=== PATIENT | male | born 1965 | race Caucasian/White ===

== ENCOUNTER 2016-12-09 21:43 | Inpatient (IN) | payer OTHER ==
[2016-12-09 22:44] LABS: MCH 26.9 pg (25.7-33.7); MCHC 32.3 g/dl (32.0-35.9); MEAN CELL VOLUME 83.4 fl (80-96); MEAN PLT VOLUME 9.8 fl (7.5-11.1); PLATELET COUNT 175 K/MM3 (134-434); RDW 13.9 % (11.9-15.9); WHITE BLOOD COUNT 26.2 K/mm3 (4.0-10.0)
--- NOTE | 2016-12-09 23:04 | PDOC ---
History of Present Illness - General Chief Complaint: Nausea/Vomiting Stated Complaint: VOMITING/FEVER/LIGHTHEADED Time Seen by Provider: 12/09/16 22:02 History Source: Patient, Other (son) Exam Limitations: No Limitations - History of Present Illness Travel History: No Initial Comments: 12/09/16 23:55 51-year-old male with a history of interstitial cystitis presents to the emergency department with his son complaining of fever (tmax 104.0 @1100hrs today/oral temp at home), with nausea/vomiting but denies any abdominal pains, dizziness, lightheadedness, chest pain, shortness of breath, flank pain, urinary symptoms. Patient states he had a cystoscopy today by his urologist. Past History - Past Medical History Allergies/Adverse Reactions: Allergies Allergy/AdvReac Type Severity Reaction Status Date / Time Iodinated Contrast Media - Allergy Verified 12/09/16 22:22 Oral and Home Medications: Ambulatory Orders Pentosan Polysulfate Sodium [Elmiron] 100 mg PO TID 08/27/15 Ranitidine HCl [Zantac 75] 75 mg PO DAILY 08/27/15 Tamsulosin HCl [Flomax -] 0.4 mg PO DAILY 08/27/15 Docusate Sodium [Colace -] 100 mg PO BID 04/30/16 Sennosides [Perdiem] 15 mg PO DAILY 04/30/16 Morphine *Sr* [Ms Contin -] 15 mg PO Q8H 12/09/16 Nitrofurantoin Macrocrystal [Macrodantin -] 100 mg PO QID 12/09/16 Potassium Citrate [Potassium Citrate ER] 10 meq PO BID 12/09/16 Anemia: No GI Disorders: Yes (DIVERTICULITIS) Disorders: Yes (BPH, prostatitis, kidney stones) Other medical history: chronic back pain, bladder disease - Surgical History Abdominal Surgery: Yes (hernia sx) Orthopedic Surgery: Yes (lumbar sx x2) - Psycho/Social/Smoking Cessation Hx Anxiety: No Suicidal Ideation: No Smoking Status: Yes Smoking History: Former smoker Have you smoked in the past 12 months: No Number of Cigarettes Smoked Daily: 20 If you are a former smoker, when did you quit?: 2008 Information on smoking cessation initiated: No Hx Alcohol Use: No Drug/Substance Use Hx: No Substance Use Type: None Hx Substance Use Treatment: No *Physical Exam - Vital Signs Last Vital Signs Temp Pulse Resp BP Pulse Ox 97.4 F L 110 H 23 91/65 97 12/09/16 21:51 12/09/16 21:51 12/09/16 21:51 12/09/16 21:51 12/09/16 21:51 ED Treatment Course - LABORATORY CBC & Chemistry Diagram: 12/09/16 22:30 12/09/16 22:30 - ADDITIONAL ORDERS Additional order review: 12/09/16 22:30 RBC 5.70 H MCV 83.4 MCHC 32.3 RDW 13.9 MPV 9.8 Neutrophils % Y Lymphocytes % Y Progress Note - Progress Note Progress Note: 2308hrs: Called Dr. Aga Hyde [phone]/pt's urologist 2354hrs: Second call: Dr. Hyde/urology spoke to Dr. Hyde/[facility] hospitalist to admit to ICU *DC/Admit/Observation/Transfer Diagnosis at time of Disposition: Sepsis Qualifiers: Sepsis type: sepsis due to unspecified organism Qualified Code(s): A41.9 - Sepsis, unspecified organism - Discharge Dispostion Condition at time of disposition: Guarded Admit: Yes - Referrals Referrals: Ina Elizondo [Primary Care Provider] -
[2016-12-09 23:07] LABS: ALBUMIN 4.1 g/dl (3.4-5.0); BILIRUBIN,TOTAL 1.8 mg/dL (0.2-1.0); COCKROFT - GAULT 76.76; CREATININE 1.3 mg/dL (0.7-1.3); TOT PROT 7.2 g/dl (6.4-8.2)
[2016-12-09] MEDS ORDERED: HYDROmorphone HCL CARPU-JECT 1 MG/1 ML DISP.SYRIN IVPUSH ONE (23:07)
[2016-12-09] MEDS ORDERED: ONDANSETRON 4 MG/2 ML VIAL IVPUSH ONE (23:08)
[2016-12-09] MEDS ORDERED: HYDROmorphone HCL CARPU-JECT 1 MG/1 ML DISP.SYRIN ONE (23:10)
[2016-12-09] MEDS ORDERED: ONDANSETRON 4 MG/2 ML VIAL ONE (23:10)
[2016-12-10] MEDS ORDERED: LEVOFLOXACIN 500 MG IVPB 100 ML IVPB ONE ×3 (00:04→10:00)
[2016-12-10 00:11] LABS: PLATELET ESTIMATE ADEQUATE (NORMAL)
[2016-12-10] MEDS ORDERED: KCL 10 MEQ IVPB 100 ML IVPB SCH (00:15)
[2016-12-10] MEDS ORDERED: PIPERACILLIN/TAZOB 3.375 GM 50 ML IVPB ONE (00:24)
[2016-12-10] MEDS ORDERED: ONDANSETRON 4 MG/2 ML VIAL IVPB PRN (00:27)
[2016-12-10] MEDS ORDERED: METOCLOPRAMIDE HCL INJECTION 10 MG/2 ML VIAL ONE (01:00)
[2016-12-10] MEDS ORDERED: HYDROmorphone HCL CARPU-JECT 1 MG/1 ML DISP.SYRIN ONE (01:02)
[2016-12-10] MEDS ORDERED: PIPERACILLIN/TAZOB 3.375 GM 3.375 GM in DEXTROSE 5%-WATER - 50 ML IVPB ONE (01:03)
[2016-12-10] MEDS: SODIUM CHLORIDE 1,000 ML IV SCH (01:05)
[2016-12-10] MEDS ORDERED: METOCLOPRAMIDE HCL INJECTION 10 MG/2 ML VIAL IVPB ONE (01:07)
[2016-12-10] MEDS ORDERED: HYDROmorphone HCL CARPU-JECT 1 MG/1 ML DISP.SYRIN IVPUSH ONE (01:23)
[2016-12-10] MEDS ORDERED: ACETAMINOPHEN 325 MG TABLET (FP) PO ONE (01:45)
[2016-12-10] MEDS ORDERED: ACETAMINOPHEN INJECTION 100 ML IVPB ONE (01:47)
[2016-12-10] MEDS ORDERED: ACETAMINOPHEN 1000 MG/100 ML VIAL (NON FORMULARY) IVPB ONE (01:51)
[2016-12-10] MEDS ORDERED: HEPARIN NA (PORCINE) 5,000 UNITS/ML 1ML VIAL ONE (02:46)
[2016-12-10 02:50] LABS: URINE APPEARANCE SLCLOUDY; URINE BILIRUBIN NEGATIVE (NEGATIVE); URINE COLOR DKYELLOW; URINE GLUCOSE (UA) NEGATIVE (NEGATIVE); URINE KETONE 1+ (NEGATIVE); URINE NITRITE NEGATIVE (NEGATIVE); URINE UROBILINOGEN NEGATIVE E.U./dl (0.2-1.0)
[2016-12-10] MEDS: HEPARIN NA (PORCINE) 5,000 UNITS/ML 1ML VIAL SQ SCH ×3 (02:50→18:20)
[2016-12-10 02:51] LABS: URINE BLOOD 2+ (NEGATIVE); URINE LEUK ESTERASE 2+ (NEGATIVE); URINE PROTEIN 1+ (NEGATIVE)
[2016-12-10 03:00] LABS: URINE BACTERIA RARE /hpf (NONE SEEN); URINE HYALINE CAST 20 /lpf; URINE MUCUS MANY; URINE RBC 21 /hpf (0-3); URINE WBC 252 /hpf (3-5)
--- NOTE | 2016-12-10 03:01 | HP ---
CHIEF COMPLAINT: fever and chills s/p cystoscopy Urologist: Pippa Varela HISTORY OF PRESENT ILLNESS: This is a 51 yo [place]iqu[place] man with h/o diverticulitis, BPH, prostatitis and interstitial cystitis who presents with fever of 104.1 at home and chills s/p cystoscopy on 12/08/16. ER course was notable for: (1) leukocytosis 26.2 (2) tachycardia- 110 and tachypnea- 23 (3) hypotensive- 92/54 after 2 Liters Recent Travel: denies PAST MEDICAL HISTORY: diverticulitis, BPH, prostatitis, interstitial cystitis, chronic back pain PAST SURGICAL HISTORY: rectal fistula repair, neurostimulator, hernia repair Social History: Smokin pack years quit in 2008 Alcohol: denies Drugs: denies Family History: non-contribitory Allergies Iodinated Contrast Media - Oral and Allergy (Verified 12/09/16 22:22) HOME MEDICATIONS: Home Medications 3 Medication Instructions Recorded Pentosan Polysulfate Sodium 100 mg PO TID 08/27/15 [Elmiron] Ranitidine HCl [Zantac 75] 75 mg PO DAILY 08/27/15 Tamsulosin HCl [Flomax -] 0.4 mg PO DAILY 08/27/15 Docusate Sodium [Colace -] 100 mg PO BID 04/30/16 Sennosides [Perdiem] 15 mg PO DAILY 04/30/16 Morphine *Sr* [Ms Contin -] 15 mg PO Q8H 12/09/16 Nitrofurantoin Macrocrystal 100 mg PO QID 12/09/16 [Macrodantin -] Potassium Citrate [Potassium 10 meq PO BID 12/09/16 Citrate ER] REVIEW OF SYSTEMS CONSTITUTIONAL: fever, chills, loss of appetite Absent: diaphoresis, generalized weakness, malaise, weight change HEENT: Absent: rhinorrhea, nasal congestion, throat pain, throat swelling, difficulty swallowing, mouth swelling, ear pain, eye pain, visual changes CARDIOVASCULAR: lightheadedness Absent: chest pain, syncope, palpitations, irregular heart rate, peripheral edema RESPIRATORY: Absent: cough, shortness of breath, dyspnea with exertion, orthopnea, wheezing, stridor, hemoptysis GASTROINTESTINAL: nausea, vomiting Absent: abdominal pain, abdominal distension, diarrhea, constipation, melena, hematochezia GENITOURINARY: pain at urethral meatus Absent: dysuria, frequency, urgency, hesitancy, hematuria, flank pain, retention MUSCULOSKELETAL: back pain Absent: myalgia, arthralgia, joint swelling, neck pain SKIN: Absent: rash, itching, pallor HEMATOLOGIC/IMMUNOLOGIC: Absent: easy bleeding, easy bruising, lymphadenopathy, frequent infections ENDOCRINE: Absent: unexplained weight gain, unexplained weight loss, heat intolerance, cold intolerance NEUROLOGIC: Absent: headache, focal weakness or paresthesias, dizziness, unsteady gait, seizure, mental status changes, bladder or bowel incontinence PSYCHIATRIC: Absent: anxiety, depression, suicidal or homicidal ideation, hallucinations. PHYSICAL EXAMINATION Vital Signs - 24 hr 3 12/10/16 12/10/16 01:50 02:22 Temperature 97.9 F Pulse Rate [ 108 H Apical] Pulse Rate [ 102 H Left] Respiratory 26 H Rate Blood Pressure 92/54 [Left Arm] O2 Sat by Pulse 100 Oximetry (%) GENERAL: Awake, alert, and fully oriented, in no acute distress. Warm to touch. HEAD: Normal with no signs of trauma. EYES: Pupils equal, round and reactive to light, extraocular movements intact, sclera anicteric, conjunctiva clear. No lid lag. EARS, NOSE, THROAT: Ears normal, nares patent, oropharynx clear without exudates. Moist mucous membranes. NECK: Normal range of motion, supple without lymphadenopathy, JVD, or masses. LUNGS: Breath sounds equal, clear to auscultation bilaterally. No wheezes, and no crackles. No accessory muscle use. HEART: Regular rate and rhythm, normal S1 and S2 without murmur, rub or gallop. ABDOMEN: Soft, nontender, not distended, normoactive bowel sounds, no guarding, no rebound, no masses. No hepatomegaly or splenomegaly. MUSCULOSKELETAL: Normal range of motion at all joints. No bony deformities or tenderness. No CVA tenderness. Tender over lumbar spine. UPPER EXTREMITIES: 2+ pulses, warm, well-perfused. No cyanosis. No clubbing. No peripheral edema. LOWER EXTREMITIES: 2+ pulses, warm, well-perfused. No calf tenderness. No peripheral edema. NEUROLOGICAL: Cranial nerves II-XII intact. Normal speech. PSYCHIATRIC: Cooperative. Good eye contact. Appropriate mood and affect. SKIN: Warm, dry, normal turgor, no rashes or lesions noted, normal capillary refill. Laboratory Results - last 24 hr 3 12/10/16 02:45 Urine Color Dkyellow Urine Appearance Slcloudy Urine pH 5.0 Urine Protein 1+ H Urine Glucose (UA) Negative Urine Ketones 1+ H Urine Blood 2+ H Urine Nitrite Negative Urine Bilirubin Negative Urine Urobilinogen Negative Ur Leukocyte Esterase 2+ H CBCD 3 WBC 26.2 K/mm3 (4.0-10.0) H D 12/09/16 22:30 RBC 5.70 M/mm3 (4.00-5.60) H 12/09/16 22:30 Hgb 15.3 GM/dL (11.7-16.9) 12/09/16 22:30 Hct 47.5 % (35.4-49) 12/09/16 22:30 MCV 83.4 fl (80-96) 12/09/16 22:30 MCHC 32.3 g/dl (32.0-35.9) 12/09/16 22:30 RDW 13.9 % (11.9-15.9) 12/09/16 22:30 Plt Count 175 K/MM3 (134-434) D 12/09/16 22:30 MPV 9.8 fl (7.5-11.1) 12/09/16 22:30 CMP 3 Sodium 141 mmol/L (136-145) 12/09/16 22:30 Potassium 3.2 mmol/L (3.5-5.1) L 12/09/16 22:30 Chloride 104 mmol/L (98-107) 12/09/16 22:30 Carbon Dioxide 21 mmol/L (21-32) D 12/09/16 22:30 Anion Gap 16 (8-16) 12/09/16 22:30 BUN 16 mg/dL (7-18) 12/09/16 22:30 Creatinine 1.3 mg/dL (0.7-1.3) 12/09/16 22:30 Creat Clearance w eGFR 57.97 (>60) 12/09/16 22:30 Calcium 9.0 mg/dL (8.5-10.1) 12/09/16 22:30 Total Bilirubin 1.8 mg/dL (0.2-1.0) H D 12/09/16 22:30 AST 24 U/L (15-37) 12/09/16 22:30 ALT 23 U/L (12-78) D 12/09/16 22:30 Alkaline Phosphatase 74 U/L (45-117) D 12/09/16 22:30 Total Protein 7.2 g/dl (6.4-8.2) 12/09/16 22:30 Albumin 4.1 g/dl (3.4-5.0) 12/09/16 22:30 ASSESSMENT/PLAN: A: 51 yo man with fever (104.1 at home) and chills s/p cystoscopy 12/08/16. Patient meets SIRS with tachycardia, tachypnea and leukocytosis. Lactic acid- 1.646. Currently hypotensive (92/54 down from baseline of 120-140 SBP on previous visits) after 2 liters of IVF. MAP>65. AA&Ox3. UOP-50cc after 2 liters. Likely volume depleted. Rectal temp-101F. P: urosepsis -hold Macrobid -levofloxacin (low threshold to broaden if does not improve) -fluid resuscitation for total of 3 liters -strict I&O's -bae culture -rectal temp -María Elena Velazquez following BPH -continue home Flomax Lumbar pain -continue home MS Contin GI PPX F/E/N -NS@125 after 1 liter bolus -hypokalemic 3.2- will continue home K supplementation -regular diet Dispo: Patient requires inpatient admission at this time. Consider ICU admit if BP does not improve s/p fluid resuscitation. Code Status: FULL Visit type - Emergency Visit Emergency Visit: Yes ED Registration Date: 12/10/16 Care time: The patient presented to the Emergency Department on the above date and was hospitalized for further evaluation of their emergent condition. - New Patient This patient is new to me today: Yes Date on this admission: 12/10/16 - Critical Care Critical Care patient: No
[2016-12-10] MEDS ORDERED: SODIUM CHLORIDE 1,000 ML IV STA ×3 (03:30→21:10)
[2016-12-10 03:45] VITALS: BMI 29.2
[2016-12-10] MEDS: ACETAMINOPHEN 325 MG TABLET (FP) PO PRN ×3 (04:35→18:21)
[2016-12-10] MEDS ORDERED: IBUPROFEN 600 MG TABLET (FP) PO ONE (04:39)
[2016-12-10] MEDS: morphine SO4 SUSTAINED ACTING 15 MG TABLET.SA PO SCH ×2 (05:15→13:05)
[2016-12-10 07:24] LABS: MCH 28.1 pg (25.7-33.7); MCHC 33.8 g/dl (32.0-35.9); MEAN CELL VOLUME 83.2 fl (80-96); MEAN PLT VOLUME 9.3 fl (7.5-11.1); PLATELET COUNT 147 K/MM3 (134-434); RDW 13.4 % (11.9-15.9); WHITE BLOOD COUNT 24.8 K/mm3 (4.0-10.0)
[2016-12-10 07:43] LABS: CALCIUM 7.9 mg/dL (8.5-10.1); COCKROFT - GAULT 81.12; CREATININE 1.2 mg/dL (0.7-1.3)
[2016-12-10] MEDS ORDERED: PT OWN MED DRAWER 7, Y5N ONE ×2 (09:46→21:07)
[2016-12-10] MEDS: DOCUSATE SODIUM 100 MG CAPSULE (FP) PO SCH ×2 (09:55→21:11)
[2016-12-10] MEDS: POTASSIUM CHLORIDE TABS 10 MEQ TABLET.ER (FP) PO SCH ×2 (09:55→21:11)
[2016-12-10] MEDS: RANITIDINE HCL 150 MG TABLET (FP) PO SCH (09:55)
[2016-12-10] MEDS: TAMSULOSIN HCL 0.4 MG CAP.ER.24H (FP) PO SCH (09:55)
[2016-12-10] MEDS ORDERED: PIPERACILLIN/TAZOB 3.375 GM/50 ML PRE-DOCKED IVPB SCH (10:00)
[2016-12-10] MEDS ORDERED: ERTAPENEM SODIUM 1 GM in SODIUM CHLORIDE 50 ML IVPB SCH (12:00)
[2016-12-10] MEDS: PATIENT'S OWN MEDICATION (NON-FORMULARY) (Pentosan Polysulfate Sodium [Elmiron] 100 MG) PO SCH ×2 (13:08→21:12)
--- NOTE | 2016-12-10 13:40 | CON.GU ---
Consult Consult Specialty:: urology Reason for Consultation:: r/o urosepsis s/p cystoscopy - History of Present Illness Chief Complaint: fever chills dysuria frequency History of Present Illness: sepsis s/p cystoscopy w hydrodistention in office 1 day prior to admission for interstitial cystitis - History Source History Provided By: Patient Limitations to Obtaining History: No Limitations - Alcohol/Substance Use Hx Alcohol Use: No - Smoking History Smoking history: Former smoker Have you smoked in the past 12 months: No Aproximately how many cigarettes per day: 20 If you are a former smoker, when did you quit?: 2008 Home Medications - Allergies Allergies/Adverse Reactions: Allergies Allergy/AdvReac Type Severity Reaction Status Date / Time Iodinated Contrast Media - Allergy Verified 12/09/16 22:22 Oral and - Home Medications Home Medications: Ambulatory Orders Pentosan Polysulfate Sodium [Elmiron] 100 mg PO TID 08/27/15 Ranitidine HCl [Zantac 75] 75 mg PO DAILY 08/27/15 Tamsulosin HCl [Flomax -] 0.4 mg PO DAILY 08/27/15 Docusate Sodium [Colace -] 100 mg PO BID 04/30/16 Sennosides [Perdiem] 15 mg PO DAILY 04/30/16 Morphine *Sr* [Ms Contin -] 15 mg PO Q8H 12/09/16 Nitrofurantoin Macrocrystal [Macrodantin -] 100 mg PO QID 12/09/16 Potassium Citrate [Potassium Citrate ER] 10 meq PO BID 12/09/16 Physical Exam- Vital Signs: Vital Signs Temperature 97.9 F 12/10/16 10:00 Pulse Rate 102 H 12/10/16 10:00 Respiratory Rate 20 12/10/16 10:00 Blood Pressure 96/57 12/10/16 10:00 O2 Sat by Pulse Oximetry (%) 97 12/10/16 09:00 Renal/: Yes: Bladder Distention Labs: CBC, BMP 12/10/16 06:00 12/10/16 06:00 Imaging - Results Ultrasound: Report Reviewed (enlarged prostate, 177 cc of residual urine s/p void. kidney WNL) Problem List - Problems (1) DVT prophylaxis Code(s): [id number] - (2) Sepsis Code(s): A41.9 - SEPSIS, UNSPECIFIED ORGANISM Qualifiers: Sepsis type: sepsis due to unspecified organism Qualified Code(s): A41.9 - Sepsis, unspecified organism (3) Shortness of breath Code(s): R06.02 - SHORTNESS OF BREATH (4) Abdominal pain Code(s): R10.9 - UNSPECIFIED ABDOMINAL PAIN (5) Testicular/scrotal pain Code(s): N50.8 - OTHER SPECIFIED DISORDERS OF MALE GENITAL ORG * DO NOT USE * Assessment/Plan 51M w urosepsis post cystoscopy w hydrodistention in office for interstitial cystisis 1 day prior to admission plan: IV abx as per ID
[2016-12-10] MEDS ORDERED: ZOLPIDEM TARTRATE 5 MG TABLET PO PRN (13:58)
[2016-12-10] MEDS ORDERED: HYDROmorphone HCL CARPU-JECT 2 MG/1 ML DISP.SYRIN IM PRN (14:06)
[2016-12-10] MEDS: HYDROmorphone HCL CARPU-JECT 1 MG/1 ML DISP.SYRIN IVPB PRN ×2 (14:35→22:02)
[2016-12-10] MEDS: PHENAZOPYRIDINE HCL 100 MG TABLET (FP) PO SCH (18:22)
--- NOTE | 2016-12-10 18:39 | HOSP ---
Physical Examination Vital Signs: Vital Signs Temperature 98.3 F 12/10/16 17:40 Pulse Rate 92 H 12/10/16 17:40 Respiratory Rate 20 12/10/16 17:40 Blood Pressure 95/59 12/10/16 17:40 O2 Sat by Pulse Oximetry (%) 97 12/10/16 17:50 Constitutional: Yes: No Distress Eyes: Yes: WNL Neck: Yes: Supple Cardiovascular: Yes: S1, S2 Respiratory: Yes: Regular Gastrointestinal: Yes: Normal Bowel Sounds, Soft Renal/: Yes: Blunt Present, Hematuria Musculoskeletal: Yes: Back Pain, Other (body pain, aches) Edema: No Neurological: Yes: Alert, Oriented, Cran Nerves II-XII Intact Psychiatric: Yes: Alert, Oriented Labs: CBC, BMP 12/10/16 06:00 12/10/16 06:00 Hospitalist Encounter Assessment: Assessment: 51 year old man with h/o diverticulitis, BPH, prostatitis and interstitial cystitis admitted s/p cystoscopy on 12/08/16 presented with sepsis. Plan: 1. Sepsis d/t UTI - Pt previously on macrobid and cr slowly up trending - Will stop zosyn - Start Ertapenem 1gm daily - Await urine and blood cultures - s/p 1L NS due to hypotension, MAP now 71 - Cont IVF 125cc/hr - Maintain MAP >65 - Monitor BP closely 2. Hypotensive - due to sepsis, see above 3. UTI - Awaiting cx - Abx as above 4. s/p cysto 12/09/BPH/hx interstitial cystitis - Maintain blunt - Continue flomax - Continue elmiron TID 5. Chronic Back pain - Has neurostimulator, to maintain - MS contin
--- NOTE | 2016-12-10 19:11 | CONSULT ---
Consult Consult Specialty:: infectious diseases Reason for Consultation:: uti sepsis,prostatitis - History of Present Illness History of Present Illness: 51-year-old male with a history of interstitial cystitis admitted for fever very high, with nausea/vomiting but denies any abdominal pains, dizziness, lightheadedness, chest pain, shortness of breath, flank pain, urinary symptoms. Patient states he had a cystoscopy recently patient still feels very sick and sweaty and chilly also of note was that the patient was hypotensive and in sepsis - History Source History Provided By: Patient, Medical Record Limitations to Obtaining History: Language Barrier - Alcohol/Substance Use Hx Alcohol Use: No - Smoking History Smoking history: Former smoker Have you smoked in the past 12 months: No Aproximately how many cigarettes per day: 20 If you are a former smoker, when did you quit?: 2008 Home Medications - Allergies Allergies/Adverse Reactions: Allergies Allergy/AdvReac Type Severity Reaction Status Date / Time Iodinated Contrast Media - Allergy Verified 12/09/16 22:22 Oral and - Home Medications Home Medications: Ambulatory Orders Pentosan Polysulfate Sodium [Elmiron] 100 mg PO TID 08/27/15 Ranitidine HCl [Zantac 75] 75 mg PO DAILY 08/27/15 Tamsulosin HCl [Flomax -] 0.4 mg PO DAILY 08/27/15 Docusate Sodium [Colace -] 100 mg PO BID 04/30/16 Sennosides [Perdiem] 15 mg PO DAILY 04/30/16 Morphine *Sr* [Ms Contin -] 15 mg PO Q8H 12/09/16 Potassium Citrate [Potassium Citrate ER] 10 meq PO BID 12/09/16 Review of Systems - Review of Systems Constitutional: reports: Chills, Fever, Weakness Eyes: reports: No Symptoms HENT: reports: No Symptoms Neck: reports: No Symptoms Cardiovascular: reports: No Symptoms Respiratory: reports: No Symptoms Gastrointestinal: reports: No Symptoms Genitourinary: reports: No Symptoms Musculoskeletal: reports: No Symptoms Integumentary: reports: No Symptoms Neurological: reports: No Symptoms Endocrine: reports: No Symptoms Hematology/Lymphatic: reports: No Symptoms Psychiatric: reports: No Symptoms Physical Exam Vital Signs: Vital Signs Temperature 98.3 F 12/10/16 17:40 Pulse Rate 92 H 12/10/16 17:40 Respiratory Rate 20 12/10/16 17:40 Blood Pressure 95/59 12/10/16 17:40 O2 Sat by Pulse Oximetry (%) 97 12/10/16 17:50 Constitutional: Yes: Calm, Moderate Distress Eyes: Yes: Conjunctiva Clear Cardiovascular: Yes: Regular Rate and Rhythm Respiratory: Yes: Regular, CTA Bilaterally Gastrointestinal: Yes: Normal Bowel Sounds, Soft Renal/: Yes: Other (burning in urine). No: CVA Tenderness - Left, CVA Tenderness - Right Musculoskeletal: Yes: WNL Extremities: Yes: WNL Labs: CBC, BMP 12/10/16 06:00 12/10/16 06:00 Imaging - Results Ultrasound: Report Reviewed, Image Reviewed Assessment/Plan hypotension uti sepsis dehydration plan switched to meropenam hydration very close monitoring rest as per primary team
--- NOTE | 2016-12-10 21:25 | HOSP ---
Subjective - Review of Symptoms General: No: Chills, Night Sweats, Malaise HEENT: No: Head Aches, Eye Pain Pulmonary: No: Dyspnea, Cough Cardiovascular: No: Chest Pain, Palpitations, Orthopnea, Light Headedness Gastrointestinal: No: Nausea, Vomiting, Abdominal Pain Genitourinary: No: Dysuria, Frequency, Hematuria Musculoskeletal: Yes: Back Pain Neurological: No: Weakness Physical Examination Vital Signs: Vital Signs 3 Temperature 98.1 F 12/10/16 21:01 Pulse Rate 96 H 12/10/16 21:01 Respiratory Rate 18 12/10/16 21:01 Blood Pressure 89/57 12/10/16 21:01 O2 Sat by Pulse Oximetry (%) 97 12/10/16 17:50 Constitutional: Yes: Well Nourished, No Distress, Calm Eyes: Yes: WNL HENT: Yes: WNL Neck: Yes: WNL Cardiovascular: Yes: WNL Respiratory: Yes: WNL Gastrointestinal: Yes: WNL ...Rectal Exam: Yes: Deferred Renal/: No: CVA Tenderness - Left, CVA Tenderness - Right Musculoskeletal: Yes: Back Pain Extremities: Yes: WNL Edema: No Peripheral Pulses WNL: Yes Integumentary: Yes: WNL ...Motor Strength: WNL Psychiatric: Yes: WNL Labs: CBC, BMP 12/10/16 06:00 12/10/16 06:00 Hospitalist Encounter Assessment: A: This is a 51 year old man with h/o diverticulitis, BPH, prostatitis and interstitial cystitis admitted s/p cystoscopy on 12/08/16 presented with sepsis. P: hypotension -fluid responsive as MAP-78 s/p 2 liters NS -continue NS@125 -continue to closely monitor BP
[2016-12-11] MEDS ORDERED: SODIUM CHLORIDE 1,000 ML IV STA (00:59)
[2016-12-11] MEDS ORDERED: PT OWN MED DRAWER 7, Y5N ONE ×4 (01:48→19:06)
[2016-12-11] MEDS: HEPARIN NA (PORCINE) 5,000 UNITS/ML 1ML VIAL SQ SCH ×3 (01:57→18:39)
[2016-12-11] MEDS: SODIUM CHLORIDE 1,000 ML IV SCH ×2 (01:58→21:35)
[2016-12-11] MEDS: MEROPENEM 1 GM in DEXTROSE 5%-WATER - 100 ML IVPB SCH ×3 (02:00→18:39)
[2016-12-11] MEDS: ACETAMINOPHEN 325 MG TABLET (FP) PO PRN ×2 (02:01→09:04)
[2016-12-11] MEDS: HYDROmorphone HCL CARPU-JECT 1 MG/1 ML DISP.SYRIN IVPB PRN ×2 (03:37→12:10)
[2016-12-11] MEDS: PATIENT'S OWN MEDICATION (NON-FORMULARY) (Pentosan Polysulfate Sodium [Elmiron] 100 MG) PO SCH ×3 (06:09→21:35)
[2016-12-11 07:23] LABS: MCH 28.1 pg (25.7-33.7); MCHC 33.4 g/dl (32.0-35.9); MEAN CELL VOLUME 84.1 fl (80-96); MEAN PLT VOLUME 9.7 fl (7.5-11.1); PLATELET COUNT 140 K/MM3 (134-434); RDW 13.9 % (11.9-15.9); WHITE BLOOD COUNT 24.9 K/mm3 (4.0-10.0)
[2016-12-11] MEDS: HYDROmorphone HCL CARPU-JECT 2 MG/1 ML DISP.SYRIN IVPB PRN ×3 (07:46→20:37)
[2016-12-11 07:58] LABS: ALBUMIN 2.4 g/dl (3.4-5.0); ALK PHOS 47 U/L (45-117); ANION GAP 5 (8-16); CALCIUM 7.4 mg/dL (8.5-10.1); CO2 26 mmol/L (21-32); COCKROFT - GAULT 97.35; GLUCOSE,RANDOM 94 mg/dL (74-106); SGOT/AST 22 U/L (15-37); SGPT/ALT 13 U/L (12-78); TOT PROT 4.9 g/dl (6.4-8.2)
[2016-12-11 08:40] LABS: PLATELET ESTIMATE DECREASED (NORMAL)
[2016-12-11] MEDS: TAMSULOSIN HCL 0.4 MG CAP.ER.24H (FP) PO SCH (09:05)
[2016-12-11] MEDS: DOCUSATE SODIUM 100 MG CAPSULE (FP) PO SCH ×2 (09:06→21:35)
[2016-12-11] MEDS: RANITIDINE HCL 150 MG TABLET (FP) PO SCH (09:06)
[2016-12-11] MEDS: POTASSIUM CHLORIDE TABS 10 MEQ TABLET.ER (FP) PO SCH ×2 (09:07→21:35)
[2016-12-11] MEDS: PHENAZOPYRIDINE HCL 100 MG TABLET (FP) PO SCH ×3 (09:07→18:40)
--- NOTE | 2016-12-11 12:51 | PN ---
Progress Note, Physician History of Present Illness: still does not feel well family in room weak still having fevers - Current Medication List Current Medications: Active Medications Acetaminophen (Tylenol -) 650 mg PO Q6H PRN PRN Reason: FEVER OR PAIN Last Admin: 12/11/16 09:04 Dose: 650 mg Docusate Sodium (Colace -) 100 mg PO BID [facility] Last Admin: 12/11/16 09:06 Dose: 100 mg Heparin Sodium (Porcine) (Heparin -) 5,000 unit SQ Q8H-IV KRISTINE Last Admin: 12/11/16 09:08 Dose: 5,000 unit Hydromorphone HCl (Dilaudid Injection -) 1 mg IVPB Q4H PRN Last Admin: 12/11/16 12:10 Dose: 1 mg Hydromorphone HCl (Dilaudid Injection -) 2 mg IVPB Q4H PRN Last Admin: 12/11/16 07:46 Dose: 2 mg Hydromorphone HCl (Dilaudid Injection -) 1 mg IVPB ONCE ONE Stop: 12/11/16 12:24 Sodium Chloride (Normal Saline -) 1,000 mls @ 125 mls/hr IV ASDIR [facility] Last Admin: 12/11/16 01:58 Dose: 125 mls/hr Meropenem 1 gm/ Dextrose 100 mls @ 100 mls/hr IVPB Q8H-IV KRISTINE PRN Reason: Protocol Last Admin: 12/11/16 11:13 Dose: 100 mls/hr Non-Formulary Medication (Pentosan Polysulfate Sodium [Elmiron]) 100 mg PO TID [facility] Last Admin: 12/11/16 06:09 Dose: 100 mg Non-Formulary Medication (Sennosides [Perdiem]) 15 mg PO DAILY [facility] Ondansetron HCl (Zofran Injection) 4 mg IVPB Q6H PRN PRN Reason: NAUSEA Phenazopyridine HCl (Pyridium -) 100 mg PO PC [facility] Last Admin: 12/11/16 09:07 Dose: 100 mg Potassium Chloride (K-Dur -) 10 meq PO BID [facility] Last Admin: 12/11/16 09:07 Dose: 10 meq Ranitidine HCl (Zantac -) 75 mg PO DAILY [facility] Last Admin: 12/11/16 09:06 Dose: 75 mg Tamsulosin HCl (Flomax -) 0.4 mg PO DAILY@0830 [facility] Last Admin: 12/11/16 09:05 Dose: 0.4 mg Zolpidem Tartrate (Ambien -) 10 mg PO HS PRN PRN Reason: INSOMNIA Stop: 12/11/16 13:57 - Objective Vital Signs: Vital Signs Temperature 98.8 F 12/11/16 06:17 Pulse Rate 87 12/11/16 06:17 Respiratory Rate 16 12/11/16 06:17 Blood Pressure 105/66 12/11/16 06:17 O2 Sat by Pulse Oximetry (%) 97 12/10/16 21:00 Constitutional: Yes: Calm, Mild Distress Cardiovascular: Yes: Regular Rate and Rhythm Respiratory: Yes: Regular, CTA Bilaterally Gastrointestinal: Yes: Normal Bowel Sounds, Soft Musculoskeletal: Yes: WNL Extremities: Yes: WNL Neurological: Yes: Alert, Oriented Psychiatric: Yes: Alert, Oriented Labs: CBC, BMP 12/11/16 06:15 12/11/16 06:15 Assessment/Plan hypotension uti sepsis dehydration plan continue abx hydration close monitoring rest as per primary team
--- NOTE | 2016-12-11 12:55 | PN ---
Physical Exam: SUBJECTIVE: Patient seen and examined. He c/o UGARTE and body pain. Specifically right chest wall pain. states he was vomiting all Monday Events: - Hypotension overnight, additional r0dgacl given - No fevers recorded OBJECTIVE: Vital Signs Period Temp Pulse Resp BP Sys/Castro Pulse Ox Last 24 Hr 97.2 F-98.9 F 87-103 16-20 86-105/57-67 97-97 PE Neuro: alert, awake, cn 2-12intact Pulm: CTAB CV: s1 s2 rrr, Right chest wall discomfort, reproducible CP Abd: s nt nd +bs : blunt Ext: no le edema Skin: tattoo LUE, posterior thoracic scar healed Laboratory Results - last 24 hr 12/10/16 12/11/16 12/11/16 02:45 06:15 06:15 WBC 24.9 H RBC 4.61 Hgb 12.9 Hct 38.8 MCV 84.1 MCHC 33.4 RDW 13.9 Plt Count 140 MPV 9.7 Neutrophils % 76.0 Lymphocytes % 8.0 Monocytes % 2.0 L D Band Neutrophils 14.0 H Platelet Estimate Decreased Platelet Comment No clumping noted Sodium 142 Potassium 4.3 Chloride 111 H Carbon Dioxide 26 Anion Gap 5 L BUN 11 D Creatinine 1.0 Creat Clearance w eGFR > 60 Random Glucose 94 Lactic Acid Calcium 7.4 L Total Bilirubin 1.0 D AST 22 ALT 13 D Alkaline Phosphatase 47 D Total Protein 4.9 L D Albumin 2.4 L D Ur Specific Lamar 1.020 12/09/16 12/11/16 22:42 06:15 Lactic Acid 0.901 Lipase 164 Active Medications Generic Name Dose Route Start Last Admin Trade Name Freq PRN Reason Stop Dose Admin Acetaminophen 650 mg 12/10/16 00:27 12/11/16 09:04 Tylenol - PO 650 mg Q6H PRN Administration FEVER OR PAIN Docusate Sodium 100 mg 12/10/16 10:00 12/11/16 09:06 Colace - PO 100 mg BID KRISTINE Administration Heparin Sodium (Porcine) 5,000 unit 12/10/16 02:00 12/11/16 09:08 Heparin - SQ 5,000 unit Q8H-IV KRISTINE Administration Hydromorphone HCl 1 mg 12/10/16 15:49 12/11/16 12:10 Dilaudid Injection - IVPB 1 mg Q4H PRN Administration Hydromorphone HCl 2 mg 12/10/16 15:50 12/11/16 07:46 Dilaudid Injection - IVPB 2 mg Q4H PRN Administration Hydromorphone HCl 1 mg 12/11/16 12:23 Dilaudid Injection - IVPB 12/11/16 12:24 ONCE ONE Sodium Chloride 1,000 mls @ 125 mls/hr 12/10/16 00:30 12/11/16 01:58 Normal Saline - IV 125 mls/hr ASDIR KRISTINE Administration Meropenem 1 gm/ Dextrose 100 mls @ 100 mls/hr 12/11/16 02:00 12/11/16 11:13 IVPB 100 mls/hr Q8H-IV KRISTINE Administration Protocol Non-Formulary Medication 100 mg 12/10/16 14:00 12/11/16 06:09 Pentosan Polysulfate Sodium [Elmiron] PO 100 mg TID KRISTINE Administration Non-Formulary Medication 15 mg 12/10/16 10:00 Sennosides [Perdiem] PO DAILY KRISTINE Ondansetron HCl 4 mg 12/10/16 00:27 Zofran Injection IVPB Q6H PRN NAUSEA Phenazopyridine HCl 100 mg 12/10/16 18:30 12/11/16 09:07 Pyridium - PO 100 mg PC KRISTINE Administration Potassium Chloride 10 meq 12/10/16 10:00 12/11/16 09:07 K-Dur - PO 10 meq BID KRISTINE Administration Ranitidine HCl 75 mg 12/10/16 10:00 12/11/16 09:06 Zantac - PO 75 mg DAILY KRISTINE Administration Tamsulosin HCl 0.4 mg 12/10/16 08:30 12/11/16 09:05 Flomax - PO 0.4 mg DAILY@0830 KRISTINE Administration Zolpidem Tartrate 10 mg 12/10/16 13:58 Ambien - PO 12/11/16 13:57 HS PRN INSOMNIA Microbiology 12/10/16 02:45 Urine Culture - Final Urine - Urine Clean Catch NO GROWTH OBTAINED 12/09/16 22:31 Blood Culture - Preliminary Blood - Peripheral Venous NO GROWTH OBTAINED AFTER 24 HOURS, INCUBATION TO CONTINUE FOR 4 DAYS. 12/09/16 22:30 Blood Culture - Preliminary Blood - Peripheral Venous NO GROWTH OBTAINED AFTER 24 HOURS, INCUBATION TO CONTINUE FOR 4 DAYS. Assessment: 51 year old man with h/o diverticulitis, BPH, prostatitis and interstitial cystitis admitted s/p cystoscopy on 12/08/16 presented with sepsis. Plan: 1. Sepsis d/t UTI - BP improved after additional bolusx2, cr improved - Abx switched to Meropenem 1gm q8 per ID - Blood and urine cx negative - Cont IVF 125cc/hr - Maintain MAP >65 - Monitor BP closely 2. Hypotensive - Due to sepsis, see above 3. UTI - Urine cx negative 4. s/p cysto 12/09/BPH/hx interstitial cystitis - Maintain blunt - Continue Flomax - Continue Elmiron TID 5. Chronic Back pain - Has neurostimulator, to maintain - MS contin 6. Costochondritis - x1 dose ibuprofen 400mg Visit type - Emergency Visit Emergency Visit: Yes ED Registration Date: 12/10/16 Care time: The patient presented to the Emergency Department on the above date and was hospitalized for further evaluation of their emergent condition. - New Patient This patient is new to me today: Yes Date on this admission: 12/11/16 - Critical Care Critical Care patient: No
[2016-12-11] MEDS ORDERED: HYDROmorphone HCL CARPU-JECT 1 MG/1 ML DISP.SYRIN IVPB ONE (13:00)
[2016-12-11] MEDS: SENNOSIDES 8.6MG TABLET (FP) PO SCH (13:52)
[2016-12-11] MEDS ORDERED: IBUPROFEN 400 MG TABLET (FP) PO ONE (14:30)
[2016-12-12] MEDS: HYDROmorphone HCL CARPU-JECT 2 MG/1 ML DISP.SYRIN IVPB PRN ×6 (00:29→21:05)
[2016-12-12] MEDS: SODIUM CHLORIDE 1,000 ML IV SCH ×2 (00:31→09:05)
[2016-12-12] MEDS ORDERED: PT OWN MED DRAWER 7, Y5N ONE ×5 (00:59→20:44)
[2016-12-12] MEDS: MEROPENEM 1 GM in DEXTROSE 5%-WATER - 100 ML IVPB SCH ×3 (01:12→17:54)
[2016-12-12] MEDS: HEPARIN NA (PORCINE) 5,000 UNITS/ML 1ML VIAL SQ SCH ×3 (01:13→17:00)
[2016-12-12] MEDS: PATIENT'S OWN MEDICATION (NON-FORMULARY) (Pentosan Polysulfate Sodium [Elmiron] 100 MG) PO SCH ×3 (06:07→21:08)
[2016-12-12 07:15] LABS: BASOPHIL 0.2 % (0-2.0); EOSINOPHIL 0.9 % (0-4.5); MCH 27.9 pg (25.7-33.7); MCHC 33.6 g/dl (32.0-35.9); MEAN CELL VOLUME 83.2 fl (80-96); MEAN PLT VOLUME 10.1 fl (7.5-11.1); NEUTROPHILS 85.2 % (42.8-82.8); PLATELET COUNT 145 K/MM3 (134-434); RDW 13.9 % (11.9-15.9)
[2016-12-12 07:39] LABS: CALCIUM 7.5 mg/dL (8.5-10.1); COCKROFT - GAULT 121.68; CREATININE 0.8 mg/dL (0.7-1.3); MAGNESIUM 1.9 mg/dL (1.8-2.4); PHOSPHOROUS 1.3 mg/dL (2.5-4.9)
[2016-12-12] MEDS: SENNOSIDES 8.6MG TABLET (FP) PO SCH ×2 (08:51→09:03)
[2016-12-12] MEDS: TAMSULOSIN HCL 0.4 MG CAP.ER.24H (FP) PO SCH (08:57)
[2016-12-12] MEDS: PHENAZOPYRIDINE HCL 100 MG TABLET (FP) PO SCH ×3 (08:58→17:54)
[2016-12-12] MEDS: DOCUSATE SODIUM 100 MG CAPSULE (FP) PO SCH ×2 (09:04→21:08)
[2016-12-12] MEDS: POTASSIUM CHLORIDE TABS 10 MEQ TABLET.ER (FP) PO SCH ×2 (09:04→21:08)
[2016-12-12] MEDS: RANITIDINE HCL 150 MG TABLET (FP) PO SCH (09:19)
--- NOTE | 2016-12-12 12:50 | EKG ---
Test Reason : Blood Pressure : / mmHG Vent. Rate : 108 BPM Atrial Rate : 108 BPM P-R Int : 156 ms QRS Dur : 078 ms QT Int : 312 ms P-R-T Axes : 042 048 031 degrees QTc Int : 418 ms SINUS TACHYCARDIA POSSIBLE LEFT ATRIAL ENLARGEMENT BORDERLINE ECG WHEN COMPARED WITH ECG OF 28-AUG-2015 11:18, VENT. RATE HAS INCREASED Confirmed by YULIET THEODORE MD ([id number]) on 12/12/2016 12:50:06 PM Referred By: Confirmed By:YULIET THEODORE MD
[2016-12-12] MEDS: ACETAMINOPHEN 325 MG TABLET (FP) PO PRN (15:32)
--- NOTE | 2016-12-12 15:55 | PN ---
Physical Exam: SUBJECTIVE: Patient seen and examined. He still is saying he is having some right sided upper chest discomfort reproducible on palpation. OBJECTIVE: Hypotensive over the weekend, now BP stable Vital Signs Period Temp Pulse Resp BP Sys/Castro Pulse Ox Last 24 Hr 97.7 F-99.0 F 77-94 16-18 103-130/59-84 95-97 GENERAL: The patient is awake, alert, and fully oriented, in no acute distress. HEAD: Normal with no signs of trauma. EYES: sclera anicteric, conjunctiva clear. No ptosis. ENT: Ears normal, nares patent, oropharynx clear without exudates, moist mucous membranes. NECK: Trachea midline, full range of motion, supple. LUNGS: Breath sounds equal, clear to auscultation bilaterally, no wheezes, no crackles, no accessory muscle use. HEART: Regular rate and rhythm ABDOMEN: Soft, nontender, nondistended, normoactive bowel sounds, no guarding, no rebound, no hepatosplenomegaly, no masses. EXTREMITIES: no edema. NEUROLOGICAL: Normal speech, gait not observed - uses cane at home PSYCH: Normal mood, normal affect. SKIN: Warm, dry, normal turgor, no rashes or lesions noted Laboratory Results - last 24 hr 12/12/16 12/12/16 05:50 05:50 WBC 15.0 H D RBC 4.69 Hgb 13.1 Hct 39.1 MCV 83.2 MCHC 33.6 RDW 13.9 Plt Count 145 MPV 10.1 Neutrophils % 85.2 H Lymphocytes % 8.6 Monocytes % 5.1 D Eosinophils % 0.9 Basophils % 0.2 Sodium 141 Potassium 3.8 Chloride 109 H Carbon Dioxide 27 Anion Gap 5 L BUN 6 L D Creatinine 0.8 Random Glucose 76 Calcium 7.5 L Phosphorus 1.3 L D Magnesium 1.9 Active Medications Generic Name Dose Route Start Last Admin Trade Name Freq PRN Reason Stop Dose Admin Acetaminophen 650 mg 12/10/16 00:27 12/12/16 15:32 Tylenol - PO 650 mg Q6H PRN Administration FEVER OR PAIN Docusate Sodium 100 mg 12/10/16 10:00 12/12/16 09:04 Colace - PO 100 mg BID KRISTINE Administration Heparin Sodium (Porcine) 5,000 unit 12/10/16 02:00 12/12/16 09:04 Heparin - SQ 5,000 unit Q8H-IV KRISTINE Administration Hydromorphone HCl 1 mg 12/10/16 15:49 12/11/16 12:10 Dilaudid Injection - IVPB 1 mg Q4H PRN Administration Hydromorphone HCl 2 mg 12/10/16 15:50 12/12/16 12:59 Dilaudid Injection - IVPB 2 mg Q4H PRN Administration Sodium Chloride 1,000 mls @ 125 mls/hr 12/10/16 00:30 12/12/16 09:05 Normal Saline - IV 125 mls/hr ASDIR KRISTINE Administration Meropenem 1 gm/ Dextrose 100 mls @ 100 mls/hr 12/11/16 02:00 12/12/16 09:18 IVPB 100 mls/hr Q8H-IV KRISTINE Administration Protocol Non-Formulary Medication 100 mg 12/10/16 14:00 12/12/16 15:31 Pentosan Polysulfate Sodium [Elmiron] PO 100 mg TID KRISTINE Administration Ondansetron HCl 4 mg 12/10/16 00:27 Zofran Injection IVPB Q6H PRN NAUSEA Phenazopyridine HCl 100 mg 12/10/16 18:30 12/12/16 13:05 Pyridium - PO 100 mg PC KRISTINE Administration Potassium Chloride 10 meq 12/10/16 10:00 12/12/16 09:04 K-Dur - PO 10 meq BID KRISTINE Administration Ranitidine HCl 75 mg 12/10/16 10:00 12/12/16 09:19 Zantac - PO 75 mg DAILY KRISTINE Administration Senna 2 tab 12/10/16 10:00 12/12/16 09:03 Senna - PO 2 tab DAILY KRISTINE Administration Tamsulosin HCl 0.4 mg 12/10/16 08:30 12/12/16 08:57 Flomax - PO 0.4 mg DAILY@0830 KRISTINE Administration ASSESSMENT/PLAN: Patient is a 51 year old man with a significant past medical history of diverticulitis, BPH, prostatitis and interstitial cystitis who presented to the ED on 12/10/2016 with fever of 104F associated with chills. He had a recent cystoscopy on 12/08/2016. ID Urosepsis - improving Assessment/Plan: Patient admitted with fever of 104F with chills He is status post cystoscopy on 12/09 WBC trending down 26.2>15, remains afebrile Lactic acid within normal limits On Meropenem 1 gram since 12/11 Hypotensive episodes over the weekend likely secondary to sepsis, now improving Goal is to maintain map >65 Blood and urine cultures negative to date On NS @ 125cc/hr : BPH/Interstitial Cystitis Assessment/Plan: On Flomax 0.4mg On Pyridium Aguirre catheter present on admission Muscular/Skeletal: Chronic back pain/Lumbar pain Assessment/Plan: Dilaudid prn bowel regimen with colace/senna F.E.N. Fluids: Normal saline @ 125cc/hr Electrolytes: within normal limits, monitor BMP Nutrition: Regular diet Prophylaxis: GI: Zantac 75mg daily DVT: Heparin Q8 Disposition: Requires inpatient hospitalization. Full code.
--- NOTE | 2016-12-12 18:50 | PN ---
Progress Note, Physician History of Present Illness: patient still not feeling well urine concentrated afebrile now all cx report noted - Current Medication List Current Medications: Active Medications Acetaminophen (Tylenol -) 650 mg PO Q6H PRN PRN Reason: FEVER OR PAIN Last Admin: 12/12/16 15:32 Dose: 650 mg Docusate Sodium (Colace -) 100 mg PO BID [facility] Last Admin: 12/12/16 09:04 Dose: 100 mg Heparin Sodium (Porcine) (Heparin -) 5,000 unit SQ Q8H-IV [facility] Last Admin: 12/12/16 17:00 Dose: 5,000 unit Hydromorphone HCl (Dilaudid Injection -) 1 mg IVPB Q4H PRN Last Admin: 12/11/16 12:10 Dose: 1 mg Hydromorphone HCl (Dilaudid Injection -) 2 mg IVPB Q4H PRN Last Admin: 12/12/16 17:03 Dose: 2 mg Sodium Chloride (Normal Saline -) 1,000 mls @ 125 mls/hr IV ASDIR [facility] Last Admin: 12/12/16 09:05 Dose: 125 mls/hr Meropenem 1 gm/ Dextrose 100 mls @ 100 mls/hr IVPB Q8H-IV KRISTINE PRN Reason: Protocol Last Admin: 12/12/16 17:54 Dose: 100 mls/hr Non-Formulary Medication (Pentosan Polysulfate Sodium [Elmiron]) 100 mg PO TID [facility] Last Admin: 12/12/16 15:31 Dose: 100 mg Ondansetron HCl (Zofran Injection) 4 mg IVPB Q6H PRN PRN Reason: NAUSEA Phenazopyridine HCl (Pyridium -) 100 mg PO PC [facility] Last Admin: 12/12/16 17:54 Dose: 100 mg Potassium Chloride (K-Dur -) 10 meq PO BID [facility] Last Admin: 12/12/16 09:04 Dose: 10 meq Ranitidine HCl (Zantac -) 75 mg PO DAILY [facility] Last Admin: 12/12/16 09:19 Dose: 75 mg Senna (Senna -) 2 tab PO DAILY [facility] Last Admin: 12/12/16 09:03 Dose: 2 tab Tamsulosin HCl (Flomax -) 0.4 mg PO DAILY@0830 [facility] Last Admin: 12/12/16 08:57 Dose: 0.4 mg - Objective Vital Signs: Vital Signs Temperature 98.7 F 12/12/16 18:34 Pulse Rate 87 12/12/16 18:34 Respiratory Rate 20 12/12/16 18:34 Blood Pressure 106/65 12/12/16 18:34 O2 Sat by Pulse Oximetry (%) 97 12/12/16 09:00 Constitutional: Yes: Calm, Mild Distress Cardiovascular: Yes: Regular Rate and Rhythm Respiratory: Yes: Regular, CTA Bilaterally Gastrointestinal: Yes: Normal Bowel Sounds, Soft Genitourinary: Yes: Aguirre Present Musculoskeletal: Yes: WNL Extremities: Yes: WNL Neurological: Yes: Alert, Oriented Psychiatric: Yes: Alert, Oriented Labs: CBC, BMP 12/12/16 05:50 12/12/16 05:50 Assessment/Plan hypotension uti sepsis dehydration plan continue abx hydration if patient remains afebrile will switch to oral abx tomorrow plan for foleys according to urology
[2016-12-13] MEDS ORDERED: PT OWN MED DRAWER 7, Y5N ONE ×3 (00:57→09:21)
[2016-12-13] MEDS: HYDROmorphone HCL CARPU-JECT 2 MG/1 ML DISP.SYRIN IVPB PRN ×4 (00:58→13:54)
[2016-12-13] MEDS: MEROPENEM 1 GM in DEXTROSE 5%-WATER - 100 ML IVPB SCH ×2 (00:59→09:44)
[2016-12-13] MEDS: HEPARIN NA (PORCINE) 5,000 UNITS/ML 1ML VIAL SQ SCH ×2 (01:04→09:44)
[2016-12-13] MEDS: SODIUM CHLORIDE 1,000 ML IV SCH ×2 (01:38→09:45)
[2016-12-13] MEDS: PATIENT'S OWN MEDICATION (NON-FORMULARY) (Pentosan Polysulfate Sodium [Elmiron] 100 MG) PO SCH ×2 (05:16→13:31)
[2016-12-13 08:07] LABS: BASOPHIL 0.3 % (0-2.0); EOSINOPHIL 1.6 % (0-4.5); MCHC 34.1 g/dl (32.0-35.9); MEAN CELL VOLUME 82.3 fl (80-96); MEAN PLT VOLUME 9.7 fl (7.5-11.1); NEUTROPHILS 76.4 % (42.8-82.8); PLATELET COUNT 175 K/MM3 (134-434); RDW 13.8 % (11.9-15.9)
[2016-12-13 08:38] LABS: ALBUMIN 2.6 g/dl (3.4-5.0); ALK PHOS 59 U/L (45-117); ANION GAP 8 (8-16); BILIRUBIN,TOTAL 0.5 mg/dL (0.2-1.0); CALCIUM 7.9 mg/dL (8.5-10.1); CO2 26 mmol/L (21-32); COCKROFT - GAULT 121.68; CREATININE 0.8 mg/dL (0.7-1.3); GLUCOSE,RANDOM 88 mg/dL (74-106); SGOT/AST 18 U/L (15-37); SGPT/ALT 18 U/L (12-78); TOT PROT 5.3 g/dl (6.4-8.2)
[2016-12-13] MEDS: PHENAZOPYRIDINE HCL 100 MG TABLET (FP) PO SCH ×2 (09:40→13:24)
[2016-12-13] MEDS: TAMSULOSIN HCL 0.4 MG CAP.ER.24H (FP) PO SCH (09:40)
[2016-12-13] MEDS: DOCUSATE SODIUM 100 MG CAPSULE (FP) PO SCH (09:44)
[2016-12-13] MEDS: POTASSIUM CHLORIDE TABS 10 MEQ TABLET.ER (FP) PO SCH (09:44)
[2016-12-13] MEDS: RANITIDINE HCL 150 MG TABLET (FP) PO SCH (09:45)
[2016-12-13] MEDS: SENNOSIDES 8.6MG TABLET (FP) PO SCH (09:45)
[2016-12-13] MEDS ORDERED: POTASSIUM CHLORIDE ORAL LIQUID 20 MEQ/15 ML PO ONE (10:00)
[2016-12-13 10:06] VITALS: BP 124/92; PULSE 78; TEMP 98.6
[2016-12-13 10:56] LABS: PHOSPHOROUS 1.7 mg/dL (2.5-4.9)
--- NOTE | 2016-12-13 13:54 | DS ---
Physical Exam: SUBJECTIVE: Patient seen and examined. Denies any chest pain or discomfort. OBJECTIVE: Blunt removed, patient voiding freely without difficulty Patient to follow up with urologist as outpatient and continue PO antibiotics of Cipro 500mg BID x 11 days Vital Signs Period Temp Pulse Resp BP Sys/Castro Pulse Ox Last 24 Hr 97.9 F-99.0 F 76-91 20-20 106-136/65-92 96-97 PHYSICAL EXAM GENERAL: The patient is awake, alert, and fully oriented, in no acute distress. HEAD: Normal with no signs of trauma. EYES: sclera anicteric, conjunctiva clear. No ptosis. ENT: Ears normal, nares patent, oropharynx clear without exudates, moist mucous membranes. NECK: Trachea midline, full range of motion, supple. LUNGS: Breath sounds equal, clear to auscultation bilaterally, no wheezes, no crackles, no accessory muscle use. HEART: Regular rate and rhythm ABDOMEN: Soft, nontender, nondistended, normoactive bowel sounds, no guarding, no rebound, no hepatosplenomegaly, no masses. EXTREMITIES: no edema. NEUROLOGICAL: Normal speech, gait not observed - uses cane at home PSYCH: Normal mood, normal affect. SKIN: Warm, dry, normal turgor, no rashes or lesions noted LABS Laboratory Results - last 24 hr 12/13/16 12/13/16 12/13/16 06:35 06:35 08:58 WBC 9.0 D RBC 4.75 Hgb 13.3 Hct 39.1 MCV 82.3 MCHC 34.1 RDW 13.8 Plt Count 175 D MPV 9.7 Neutrophils % 76.4 Lymphocytes % 13.6 D Monocytes % 8.1 Eosinophils % 1.6 Basophils % 0.3 Sodium 142 Potassium 3.3 L Chloride 108 H Carbon Dioxide 26 Anion Gap 8 BUN 6 L Creatinine 0.8 Creat Clearance w eGFR > 60 Random Glucose 88 Calcium 7.9 L Phosphorus 1.7 L D Cancelled Total Bilirubin 0.5 D AST 18 ALT 18 D Alkaline Phosphatase 59 D Total Protein 5.3 L Albumin 2.6 L HOSPITAL COURSE: Date of Admission:12/10/16 Date of Discharge: 12/13/16 Patient is a 51 year old man with a significant past medical history of diverticulitis, BPH, prostatitis and interstitial cystitis who presented to the ED on 12/10/2016 with fever of 104F associated with chills. He had a recent cystoscopy on 12/08/2016. ID Urosepsis - resolved Assessment/Plan: Patient admitted with fever of 104F with chills He is status post cystoscopy on 12/09 WBC trendied down 26.2>9, remains afebrile, vitals stable Lactic acid within normal limits On Meropenem 1 gram since 12/11 - now converted to Cipro 500mg BID x 11 more days to complete a 14 day course of antibiotics Vitals stable, Blood and urine cultures negative to date To follow up with urologist as an outpatient : BPH/Interstitial Cystitis Assessment/Plan: On Flomax 0.4mg On Pyridium Voiding well after blunt catheter removed Muscular/Skeletal: Chronic back pain/Lumbar pain Assessment/Plan: On home dose of morphine to continue prn Disposition: Discharge home with urology follow up. PO antibiotics for 11 more days as per ID. Full code. ] Minutes to complete discharge: 45 Discharge Summary Reason For Visit: SEPSIS Current Active Problems DVT prophylaxis (Acute) Sepsis (Acute) Shortness of breath (Acute) Condition: Improved - Instructions Diet, Activity, Other Instructions: Mr. Damianekaj Please take the antibiotic as prescribed for 11 more days, twice per day. Please follow up with your PCP and urologist within 1 week after discharge. please return to the ER with any new or persistent symptoms. Please call me if you have any questions. Edna Mccurdy [phone] Referrals: Ina Elizondo [Primary Care Provider] - Sukumar Reid MD [Non Staff, Medical] - María Elena Reid MD [Staff Physician] - Disposition: HOME - Home Medications Comprehensive Discharge Medication List: Ambulatory Orders Pentosan Polysulfate Sodium [Elmiron] 100 mg PO TID 08/27/15 Ranitidine HCl [Zantac 75] 75 mg PO DAILY 08/27/15 Tamsulosin HCl [Flomax -] 0.4 mg PO DAILY 08/27/15 Docusate Sodium [Colace -] 100 mg PO BID 04/30/16 Sennosides [Perdiem] 15 mg PO DAILY 04/30/16 Morphine *Sr* [Ms Contin -] 15 mg PO Q8H 05/12/17 Potassium Citrate [Potassium Citrate ER] 10 meq PO BID 12/09/16 Ciprofloxacin HCl [Cipro] 500 mg PO BID #22 tablet 12/13/16 Phenazopyridine HCl [Pyridium -] 100 mg PO PC #90 tablet 12/13/16 This patient is new to me today: No Emergency Visit: Yes ED Registration Date: 12/10/16 Care time: The patient presented to the Emergency Department on the above date and was hospitalized for further evaluation of their emergent condition. Critical Care patient: No - Discharge Referral Referred to [facility] Med P.C.: No
--- NOTE | 2016-12-13 21:24 | PN ---
Progress Note, Physician History of Present Illness: afebrile doing well foleys catheter removed voiding - Objective Vital Signs: Vital Signs Temperature 98.6 F 12/13/16 10:00 Pulse Rate 78 12/13/16 10:00 Respiratory Rate 20 12/13/16 10:00 Blood Pressure 124/92 12/13/16 10:00 O2 Sat by Pulse Oximetry (%) 96 12/13/16 09:00 Constitutional: Yes: No Distress, Calm Cardiovascular: Yes: Regular Rate and Rhythm Respiratory: Yes: Regular, CTA Bilaterally Gastrointestinal: Yes: Normal Bowel Sounds, Soft Genitourinary: Yes: Other Extremities: Yes: WNL Neurological: Yes: Alert, Oriented Psychiatric: Yes: Alert, Oriented Labs: CBC, BMP 12/13/16 06:35 12/13/16 06:35 Assessment/Plan hypotension uti sepsis dehydration plan patient doing well can send home on cipro 500 mg twice a day for 11 more days
== END 2016-12-13 15:27 | disposition home or self-care (01) | DRG 720 ==
LOC: JER 21:43 → JERBED 12-10 01:01 → UNDOADMIN 12-10 01:11 → J4S 12-10 03:02
PROVIDERS: ADMIT Internal Medicine; ATTEND Nurse Practitioner Family
DX: A41.9 Sepsis, unspecified organism (principal); N40.0 Benign prostatic hyperplasia without lower urinary tract symptoms; N39.0 Urinary tract infection, site not specified; E86.0 Dehydration; M54.9 Dorsalgia, unspecified; M94.0 Chondrocostal junction syndrome [Tietze]; Z87.891 Personal history of nicotine dependence; E87.6 Hypokalemia; N41.9 Inflammatory disease of prostate, unspecified; R06.02 Shortness of breath
CPT/HCPCS: 36415; 76775-TC; 76856-TC; 80048; 80053; 81003; 81015; 83605; 83690; 83735; 84100; 85025; 85027; 87040; 87086; 93005; 93010; 94010; 97116-GP; 97161-GP; 99285-25; J1644

== ENCOUNTER 2016-12-14 10:11 | Inpatient (IN) | payer OTHER ==
--- NOTE | 2016-12-14 11:27 | PDOC ---
History of Present Illness - General History Source: Patient, Family, Old Records Exam Limitations: No Limitations - History of Present Illness Initial Comments: 12/14/16 11:54 The patient is a 51-year-old man, accompanied by son, with a significant past medical history of diverticulitis, benign prostate hyperplasia, prostatitis, kidney stones and chronic back pain (on Morphine) who presents to the emergency department for further evaluation of generalized weakness. Patient was discharged yesterday from our ICU for urosepsis and placed on Cipro (500 mg) and was discharged and advised to present to the ER for worsening or persistent symptoms. Patient states that he feels short of breath with associated diaphoresis, generalized weakness and left lower quadrant pain and one episode of loose watery stools. No associated symptoms of nausea, vomiting, urinary complaints. No fever, chills, chest pain, lightheadedness, dizziness, palpitations, headaches, loss of consciousness. Allergies: Iodinated Contrast Dye Media. Past Surgical History:Hernia. Spina surgery. Lumbar surgery. Social History: Former smoker. No EtOH and recreational drug use. Primary Care Physician: Dr. Bobby Elizondo <Ayesha Castillo - Last Filed: 12/14/16 15:17> - General History Source: Patient Exam Limitations: No Limitations <Viviana Wagner - Last Filed: 12/15/16 08:26> - General Chief Complaint: Pain Stated Complaint: REVISIT/ (SEPSIS) Time Seen by Provider: 12/14/16 11:08 Past History <Ayesha Castillo - Last Filed: 12/14/16 15:17> - Past Medical History Anemia: No GI Disorders: Yes (DIVERTICULITIS) Disorders: Yes (BPH, prostatitis, kidney stones) Other medical history: BPS - Surgical History Abdominal Surgery: Yes (hernia sx) Neurologic Surgery: Yes (SPINAL SURGEY MULTIPLE) Orthopedic Surgery: Yes (lumbar sx x2) - Psycho/Social/Smoking Cessation Hx Anxiety: No Suicidal Ideation: No Smoking Status: Yes Smoking History: Never smoked Have you smoked in the past 12 months: No Number of Cigarettes Smoked Daily: 20 If you are a former smoker, when did you quit?: 2008 Hx Alcohol Use: No Drug/Substance Use Hx: No Substance Use Type: None Hx Substance Use Treatment: No <Viviana Wagner - Last Filed: 12/15/16 08:26> - Past Medical History Allergies/Adverse Reactions: Allergies Allergy/AdvReac Type Severity Reaction Status Date / Time Iodinated Contrast Media - Allergy Verified 12/14/16 10:16 Oral and Home Medications: Ambulatory Orders Pentosan Polysulfate Sodium [Elmiron] 100 mg PO TID 08/27/15 Ranitidine HCl [Zantac 75] 75 mg PO DAILY 08/27/15 Tamsulosin HCl [Flomax -] 0.4 mg PO DAILY 08/27/15 Docusate Sodium [Colace -] 100 mg PO BID 04/30/16 Sennosides [Perdiem] 15 mg PO DAILY 04/30/16 Morphine *Sr* [Ms Contin -] 15 mg PO Q8H 12/09/16 Potassium Citrate [Potassium Citrate ER] 10 meq PO BID 12/09/16 Ciprofloxacin HCl [Cipro] 500 mg PO BID #22 tablet 12/13/16 Phenazopyridine HCl [Pyridium -] 100 mg PO PC #90 tablet 12/13/16 Review of Systems - Review of Systems Able to Perform ROS?: Yes Comments:: 12/14/16 11:54 GENERAL/CONSTITUTIONAL: Yes: Generalized weakness. No: fever, chills, loss of appetite. HEAD, EYES, EARS, NOSE AND THROAT: No: change in vision, ear pain, discharge, sore throat, throat swelling. CARDIOVASCULAR: No: chest pain, lightheadedness, palpitations, syncope RESPIRATORY: No: cough, shortness of breath, wheezing, hemoptysis, stridor. GASTROINTESTINAL: Yes: Abdominal Pain. Diarrhea. No: vomiting, abdominal cramping, rectal bleeding, constipation. GENITOURINARY: No: dysuria, hematuria, frequency, urgency, flank pain. MUSCULOSKELETAL: Yes: Chronic Back Pain. No: neck pain, joint pain, muscle swelling or pain SKIN AND BREASTS: No: lesions, pallor, rash or easy bruising. NEUROLOGIC: No: headache, vertigo, paresthesias, weakness ENDOCRINE: No: unexplained weight gain or loss HEMATOLOGIC/LYMPHATIC: No: anemia, easy bleeding, swelling nodes <Ayesha Castillo - Last Filed: 12/14/16 15:17> *Physical Exam - Vital Signs Last Vital Signs Temp Pulse Resp BP Pulse Ox 97.6 F 128 H 20 131/94 98 12/14/16 10:13 12/14/16 10:13 12/14/16 10:13 12/14/16 10:13 12/14/16 10:13 - Physical Exam Comments: 12/14/16 11:54 GENERAL: Awake. Alert. The patient is in no acute distress. Appears Weak. HEAD: Normal with no signs of trauma. EYES: PERRLA, EOMI, sclera anicteric, conjunctiva clear. ENT: Ears normal, nares patent, oropharynx clear without exudates. Moist mucous membranes. NECK: Normal range of motion, supple without lymphadenopathy, JVD, or masses. LUNGS: Breath sounds equal, clear to auscultation bilaterally. No wheezes, and no crackles. HEART:Regular rate and rhythm, normal S1 and S2 without murmur, rub or gallop. ABDOMEN: Soft, mildly distended. There is some tenderness to palpation over the left lower quadrant. Normoactive bowel sounds. No guarding, no rebound. EXTREMITIES: Normal range of motion, no edema. No clubbing or cyanosis. No erythema, or tenderness. NEUROLOGICAL: Cranial nerves II through XII grossly intact. Normal speech. No focal neurological deficits. MUSCULOSKELETAL: Back non-tender to palpation, no CVA tenderness SKIN: Warm, Dry, normal turgor, no rashes or lesions noted. <Ayesha Castillo - Last Filed: 12/14/16 15:17> - Vital Signs Last Vital Signs Temp Pulse Resp BP Pulse Ox 97.6 F 128 H 20 131/94 98 12/14/16 10:13 12/14/16 10:13 12/14/16 10:13 12/14/16 10:13 12/14/16 10:13 <Viviana Wagner - Last Filed: 12/15/16 08:26> Heart Score/ECG Review #1 ECG reviewed & interpreted by me at: 12:25 General ECG Interpretation: Sinus Rhythm, Normal Rate, Normal Intervals, No acute ischemic changes <Viviana Wagner - Last Filed: 12/15/16 08:26> ED Treatment Course - LABORATORY CBC & Chemistry Diagram: 12/14/16 11:35 12/14/16 11:35 - RADIOLOGY Radiograph Interpretation: 12/14/16 12:05 EXAM: RAD/CHEST X-RAY PORTABLE Interpreted by Dr. Johnson Cobb IMPRESSION: Comparison study August 27, 2015. Unremarkable contour of the cardiomediastinal silhouette The lungs are well aerated. No evidence of pneumonia, atelectasis, pleural effusion or pneumothorax. The pulmonary vasculature is normal. Old fracture of the right clavicle. Intact visualized osseous structures. EXAM: CT/ABDOMEN PELVIS CT W/O CONTR Interpreted by Dr. González Plummer IMPRESSION: Compared to prior CT scan of the chest dated 08/27/2015, prior CT scan of the pelvis dated [address] scan of the abdomen and pelvis dated 01/13/2013 The heart remains within normal limits in size. Interval small pericardial effusion. There is interval small bilateral pleural effusion with atelectatic changes in the dependent portion of the lower lobes. Evaluation of the liver, spleen, pancreas, gallbladder, both adrenal glands and both kidneys appear unremarkable. There is no evidence of small bowel obstruction. Normal- appearing terminal ileum and appendix. A few diverticula in the distal descending and proximal sigmoid colon without evidence of acute left colitis. Moderate distention of the urinary bladder without wall thickening. Enlarged prostate gland measuring 4.8 x 4.7 cm. Perirectal and pericecal fat is clear Posterior fusion of L4 and L5 vertebral bodies with an interbody spacer are now present. The alignment is satisfactory. <Ayesha Castillo - Last Filed: 12/14/16 15:17> - LABORATORY CBC & Chemistry Diagram: 12/14/16 11:35 12/14/16 11:35 - RADIOLOGY Radiology Studies Ordered: Category Date Time Status CHEST X-RAY PORTABLE* [RAD] Stat Radiology 12/14/16 11:08 Ordered <Viviana Wagner - Last Filed: 12/15/16 08:26> Medical Decision Making - Medical Decision Making 12/14/16 15:17 MicroBlogged Hospitalist. <Ayesha Castillo - Last Filed: 12/14/16 15:17> - Medical Decision Making 12/14/16 11:27 A portion of this note was documented by scribe services under my direction. I have reviewed the details of the note, within reason, and agree with the documentation with the following case summary and management plan written by me. Nursing documentation reviewed and incorporated into medical decision making 12/14/16 15:36 Laboratory Tests 05/12/14/16 12/14/16 11:35 11:35 11:35 WBC 8.0 Hgb 14.5 Hct 43.6 Plt Count 211 D Neutrophils % 75.0 Lymphocytes % 12.0 INR 1.10 VBG pH POC VBG pCO2 POC VBG pO2 Mixed VBG HCO3 Sodium 144 Potassium 3.8 Chloride 108 H Carbon Dioxide 31 BUN 5 L Creatinine 0.9 Random Glucose 107 H D Lactic Acid Creatine Kinase 43 Troponin I 0.06 H D Urine Blood Urine Nitrite Ur Leukocyte Esterase Urine RBC Urine WBC 12/14/16 12/14/16 12/14/16 11:35 11:45 12:10 WBC Hgb Hct Plt Count Neutrophils % Lymphocytes % INR VBG pH 7.50 H POC VBG pCO2 35.9 L POC VBG pO2 30.3 Mixed VBG HCO3 27.5 H Sodium Potassium Chloride Carbon Dioxide BUN Creatinine Random Glucose Lactic Acid 1.144 Creatine Kinase Troponin I Urine Blood 2+ H Urine Nitrite Positive Ur Leukocyte Esterase 2+ H Urine RBC 24 Urine WBC 123 12/14/16 15:37 Case reviewed with MARKETING ACCOUNT MANAGER Stephanie Will re admit CT abdomen and pelvis: small pleural effusions, small pericardial effusion, no diverticulitis, bladder distention Pt currently has no fever, no leukocytosis, possible subjective fevers Will monitor Clinical impression: weakness, subjective fevers <Viviana Wagner - Last Filed: 12/15/16 08:26> *DC/Admit/Observation/Transfer - Attestations Scribe Attestion: 12/14/16 11:54 Documentation prepared by Ayesha Castillo, acting as medical file clerk for Viviana Wagner MD. <Ayesha Castillo - Last Filed: 12/14/16 15:17> - Discharge Dispostion Admit: Yes <Viviana Wagner - Last Filed: 12/15/16 08:26> Diagnosis at time of Disposition: Weakness - Discharge Dispostion Condition at time of disposition: Stable - Referrals
[2016-12-14 11:46] LABS: MCH 27.7 pg (25.7-33.7); MCHC 33.3 g/dl (32.0-35.9); MEAN PLT VOLUME 8.7 fl (7.5-11.1); PLATELET COUNT 211 K/MM3 (134-434); RDW 14.1 % (11.9-15.9)
[2016-12-14] MEDS ORDERED: HYDROmorphone HCL CARPU-JECT 1 MG/1 ML DISP.SYRIN IVPB ONE (11:53)
[2016-12-14 12:00] LABS: INR 1.1 (0.82-1.09); PROTHROMBIN TIME (PATIENT) 12.1 SEC (9.98-11.88)
[2016-12-14 12:03] LABS: ACTIVATED PTT 32.1 SECONDS (26.9-34.4)
[2016-12-14 12:04] LABS: VENOUS PH 7.5 (7.32-7.42)
[2016-12-14 12:05] LABS: VENOUS BLOOD GAS HCO3 27.5 meq/L (19-25)
[2016-12-14 12:05] LABS: ALBUMIN 3.2 g/dl (3.4-5.0); ANION GAP 5 (8-16); CALCIUM 8.9 mg/dL (8.5-10.1); CO2 31 mmol/L (21-32); COCKROFT - GAULT 109.64; CREATININE 0.9 mg/dL (0.7-1.3); GLUCOSE,RANDOM 107 mg/dL (74-106); SGOT/AST 21 U/L (15-37); SGPT/ALT 24 U/L (12-78)
[2016-12-14 12:09] LABS: ALK PHOS 69 U/L (45-117); BILIRUBIN,TOTAL 0.4 mg/dL (0.2-1.0); TOT PROT 6.4 g/dl (6.4-8.2); TROPONIN I 0.06 ng/ml (0.00-0.05)
[2016-12-14] MEDS ORDERED: ONDANSETRON 4 MG/2 ML VIAL IVPUSH ONE (12:09)
[2016-12-14] MEDS ORDERED: HYDROmorphone HCL CARPU-JECT 1 MG/1 ML DISP.SYRIN ONE ×2 (12:10→16:39)
[2016-12-14] MEDS ORDERED: ONDANSETRON 4 MG/2 ML VIAL ONE (12:10)
[2016-12-14 12:22] LABS: URINE APPEARANCE CLEAR; URINE BILIRUBIN NEGATIVE (NEGATIVE); URINE COLOR AMBER; URINE GLUCOSE (UA) NEGATIVE (NEGATIVE); URINE KETONE TRACE (NEGATIVE); URINE NITRITE POSITIVE (NEGATIVE); URINE PROTEIN NEGATIVE (NEGATIVE); URINE UROBILINOGEN 4.0 E.U/dl E.U./dl (0.2-1.0)
[2016-12-14 12:25] LABS: URINE BLOOD 2+ (NEGATIVE); URINE LEUK ESTERASE 2+ (NEGATIVE)
[2016-12-14 12:49] LABS: URINE MUCUS RARE; URINE RBC 24 /hpf (0-3); URINE WBC 123 /hpf (3-5)
[2016-12-14 14:38] LABS: PLATELET ESTIMATE ADEQUATE (NORMAL)
--- NOTE | 2016-12-14 14:43 | EKG ---
Test Reason : Blood Pressure : / mmHG Vent. Rate : 088 BPM Atrial Rate : 088 BPM P-R Int : 146 ms QRS Dur : 074 ms QT Int : 354 ms P-R-T Axes : 023 003 027 degrees QTc Int : 428 ms NORMAL SINUS RHYTHM NORMAL ECG WHEN COMPARED WITH ECG OF 10-DEC-2016 02:04, NO SIGNIFICANT CHANGE WAS FOUND Confirmed by ALECIA EDWARDS MD ([id number]) on 12/14/2016 2:42:50 PM Referred By: Confirmed By:ALECIA EDWARDS MD
[2016-12-14] MEDS ORDERED: METOCLOPRAMIDE HCL INJECTION 10 MG/2 ML VIAL IVPB ONE (15:17)
[2016-12-14] MEDS ORDERED: ACETAMINOPHEN 325 MG TABLET (FP) PO ONE (15:17)
--- NOTE | 2016-12-14 15:41 | HP ---
CHIEF COMPLAINT: Weakness PCP: Dr. Elizondo HISTORY OF PRESENT ILLNESS: This is a 51-year-old male with a history of diverticulitis, BPH, prostatitis, nephrolithiasis, interstitial cystitis, and chronic back pain (on morphine), recently admitted here from 12/10-12/13 with urosepsis s/p cystoscopy on 12/08. He was sent home on Cipro 500mg bid. This morning, he feels to weak to get out of bed. He is complaining of shaking chills. He complains of LLQ pain. ER course was notable for: (1) Tachycardic on arrival (HR 128) (2) Nitrate positive (previously negative) with 2+ leukesterase (3) Afebrile, WBC within normal limits at 8.0 Recent Travel: None Surgical History: Rectal fistula repair, neurostimulator implant, left inguinal hernia repair, cystoscopy Social History: Lives with son, on disability Smokin pack years quit in 2008 Alcohol: None Drugs: None Family History: Non-contributory to this admission Allergies Iodinated Contrast Media - Oral and Allergy (Verified 12/14/16 10:16) HOME MEDICATIONS: Home Medications Medication Instructions Recorded Pentosan Polysulfate Sodium 100 mg PO TID 08/27/15 [Elmiron] Ranitidine HCl [Zantac 75] 75 mg PO DAILY 08/27/15 Tamsulosin HCl [Flomax -] 0.4 mg PO DAILY 08/27/15 Docusate Sodium [Colace -] 100 mg PO BID 04/30/16 Sennosides [Perdiem] 15 mg PO DAILY 04/30/16 Morphine *Sr* [Ms Contin -] 15 mg PO Q8H 12/09/16 Potassium Citrate [Potassium 10 meq PO BID 12/09/16 Citrate ER] Ciprofloxacin HCl [Cipro] 500 mg PO BID #22 tablet 12/13/16 Phenazopyridine HCl [Pyridium -] 100 mg PO PC #90 tablet 12/13/16 REVIEW OF SYSTEMS CONSTITUTIONAL: Subjective fever, shaking chills, diaphoresis, generalized weakness, malaise, loss of appetite HEENT: Absent: rhinorrhea, nasal congestion, throat pain, throat swelling, difficulty swallowing, mouth swelling, ear pain, eye pain, visual changes CARDIOVASCULAR: Absent: chest pain, syncope, palpitations, irregular heart rate, lightheadedness , peripheral edema RESPIRATORY: Absent: cough, shortness of breath, dyspnea with exertion, orthopnea, wheezing, stridor, hemoptysis GASTROINTESTINAL: Lower abdominal pain, nausea Absent:abdominal distension,diarrhea, constipation, melena, hematochezia GENITOURINARY: Absent: dysuria, frequency, urgency, hesitancy, hematuria, flank pain, genital pain MUSCULOSKELETAL: Absent: myalgia, arthralgia, joint swelling, back pain, neck pain SKIN: Absent: rash, itching, pallor HEMATOLOGIC/IMMUNOLOGIC: Absent: easy bleeding, easy bruising, lymphadenopathy, frequent infections ENDOCRINE: Absent: unexplained weight gain, unexplained weight loss, heat intolerance, cold intolerance NEUROLOGIC: Absent: headache, focal weakness or paresthesias, dizziness, unsteady gait, seizure, mental status changes, bladder or bowel incontinence PSYCHIATRIC: Absent: anxiety, depression, suicidal or homicidal ideation, hallucinations. PHYSICAL EXAMINATION Vital Signs - 24 hr 12/14/16 12/14/16 10:13 12:32 Temperature 97.6 F Pulse Rate 128 H Pulse Rate [ 95 H Left] Respiratory 20 17 Rate Blood Pressure 131/94 Blood Pressure 127/89 [Arm] O2 Sat by Pulse 98 99 Oximetry (%) GENERAL: Awake, alert, and fully oriented, in no acute distress. EYES: Pupils equal, round and reactive to light, extraocular movements intact, sclera anicteric, conjunctiva clear. No lid lag. EARS, NOSE, THROAT: Ears normal, nares patent, oropharynx clear without exudates. Moist mucous membranes. NECK: Normal range of motion, supple without lymphadenopathy, JVD, or masses. LUNGS: Breath sounds equal, clear to auscultation bilaterally. No wheezes, and no crackles. No accessory muscle use. HEART: Regular rate and rhythm, normal S1 and S2 without murmur, rub or gallop. ABDOMEN: Soft, tender to palpation in LLQ, not distended, normoactive bowel sounds, no guarding, no rebound, no masses. No hepatomegaly or splenomegaly. MUSCULOSKELETAL: Normal range of motion at all joints. No bony deformities or tenderness. No CVA tenderness. UPPER EXTREMITIES: 2+ pulses, warm, well-perfused. No cyanosis. No clubbing. No peripheral edema. LOWER EXTREMITIES: 2+ pulses, warm, well-perfused. No calf tenderness. No peripheral edema. NEUROLOGICAL: Cranial nerves II-XII intact. Normal speech. Normal gait. PSYCHIATRIC: Cooperative. Good eye contact. Appropriate mood and affect. SKIN: Warm, moist, normal turgor, no rashes or lesions noted, normal capillary refill. Laboratory Results - last 24 hr 12/14/16 12/14/16 12/14/16 11:08 11:35 11:35 WBC 8.0 RBC 5.26 Hgb 14.5 Hct 43.6 MCV 83.0 MCHC 33.3 RDW 14.1 Plt Count 211 D MPV 8.7 D Neutrophils % 75.0 Lymphocytes % 12.0 Monocytes % 10.0 Eosinophils % 0.0 D Basophils % 0.0 Band Neutrophils 3.0 D Platelet Estimate Adequate INR 1.10 PTT (Actin FS) 32.1 D VBG pH POC VBG pCO2 POC VBG pO2 Mixed VBG HCO3 Sodium Potassium Chloride Carbon Dioxide Anion Gap BUN Creatinine Creat Clearance w eGFR Random Glucose Lactic Acid Calcium Total Bilirubin AST ALT Alkaline Phosphatase Creatine Kinase Troponin I Total Protein Albumin Urine Color Urine Appearance Urine pH Urine Protein Urine Glucose (UA) Urine Ketones Urine Blood Urine Nitrite Urine Bilirubin Urine Urobilinogen Ur Leukocyte Esterase Urine RBC Urine WBC Urine Mucus Blood Type A POSITIVE Antibody Screen Negative 12/14/16 12/14/16 12/14/16 11:35 11:35 11:45 WBC RBC Hgb Hct MCV MCHC RDW Plt Count MPV Neutrophils % Lymphocytes % Monocytes % Eosinophils % Basophils % Band Neutrophils Platelet Estimate INR PTT (Actin FS) VBG pH 7.50 H POC VBG pCO2 35.9 L POC VBG pO2 30.3 Mixed VBG HCO3 27.5 H Sodium 144 Potassium 3.8 Chloride 108 H Carbon Dioxide 31 Anion Gap 5 L BUN 5 L Creatinine 0.9 Creat Clearance w eGFR > 60 Random Glucose 107 H D Lactic Acid 1.144 Calcium 8.9 Total Bilirubin 0.4 AST 21 ALT 24 D Alkaline Phosphatase 69 Creatine Kinase 43 Troponin I 0.06 H D Total Protein 6.4 D Albumin 3.2 L D Urine Color Urine Appearance Urine pH Urine Protein Urine Glucose (UA) Urine Ketones Urine Blood Urine Nitrite Urine Bilirubin Urine Urobilinogen Ur Leukocyte Esterase Urine RBC Urine WBC Urine Mucus Blood Type Antibody Screen 12/14/16 12:10 WBC RBC Hgb Hct MCV MCHC RDW Plt Count MPV Neutrophils % Lymphocytes % Monocytes % Eosinophils % Basophils % Band Neutrophils Platelet Estimate INR PTT (Actin FS) VBG pH POC VBG pCO2 POC VBG pO2 Mixed VBG HCO3 Sodium Potassium Chloride Carbon Dioxide Anion Gap BUN Creatinine Creat Clearance w eGFR Random Glucose Lactic Acid Calcium Total Bilirubin AST ALT Alkaline Phosphatase Creatine Kinase Troponin I Total Protein Albumin Urine Color Lisa Urine Appearance Clear Urine pH 8.0 D Urine Protein Negative Urine Glucose (UA) Negative Urine Ketones Trace H Urine Blood 2+ H Urine Nitrite Positive Urine Bilirubin Negative Urine Urobilinogen 4.0 e.u/dl Ur Leukocyte Esterase 2+ H Urine RBC 24 Urine WBC 123 Urine Mucus Rare Blood Type Antibody Screen ASSESSMENT/PLAN: 51 year old male, discharged yesterday after being treated for sepsis secondary to UTI, returning with lower abdominal pain and constitutional symptoms. Problem List - Problem (1) Urinary tract infection Assessment/Plan: -Continuing to have signs/symptoms of sepsis -Broaden antibiotics to Ceftriaxone -Follow up repeat blood and urine cultures -IVF -Re-consult ID -Monitor fever/WBC curve Code(s): N39.0 - URINARY TRACT INFECTION, SITE NOT SPECIFIED (2) Sepsis Assessment/Plan: -As evidenced by tachycardia, rigors Code(s): A41.9 - SEPSIS, UNSPECIFIED ORGANISM Qualifiers: Sepsis type: sepsis due to unspecified organism Qualified Code(s): A41.9 - Sepsis, unspecified organism (3) Weakness Assessment/Plan: -Likely referable to above -Patient was seen ambulating in the ED -No focal neurologic deficits on exam Code(s): R53.1 - WEAKNESS (4) Abdominal pain Assessment/Plan: -CTAP is negative for acute intra-abdominal pathology -Serial exams Code(s): R10.9 - UNSPECIFIED ABDOMINAL PAIN (5) Chronic low back pain Assessment/Plan: -Continue MS Contin at home dose Code(s): M54.5 - LOW BACK PAIN G89.29 - OTHER CHRONIC PAIN (6) DVT prophylaxis Assessment/Plan: -Moderate risk -Lovenox 40mg sq daily Code(s): RMQ7653 - Visit type - Emergency Visit Emergency Visit: Yes ED Registration Date: 12/14/16 Care time: The patient presented to the Emergency Department on the above date and was hospitalized for further evaluation of their emergent condition. - New Patient This patient is new to me today: Yes Date on this admission: 12/14/16 - Critical Care Critical Care patient: No
[2016-12-14] MEDS ORDERED: CEFTRIAXONE 50 ML IVPB ONE (16:09)
[2016-12-14] MEDS ORDERED: ACETAMINOPHEN 325 MG TABLET (FP) ONE ×2 (16:11→20:19)
[2016-12-14] MEDS ORDERED: METOCLOPRAMIDE HCL INJECTION 10 MG/2 ML VIAL ONE (16:12)
[2016-12-14] MEDS ORDERED: SODIUM CHLORIDE 1,000 ML IV SCH (16:15)
[2016-12-14] MEDS ORDERED: cefTRIAXone SODIUM 1 GM VIAL ONE (16:40)
[2016-12-14] MEDS ORDERED: HYDROmorphone HCL CARPU-JECT 1 MG/1 ML DISP.SYRIN IVPUSH ONE (16:59)
[2016-12-14] MEDS ORDERED: morphine SO4 SUSTAINED ACTING 15 MG TABLET.SA PO SCH (17:00)
[2016-12-14] MEDS ORDERED: ACETAMINOPHEN 325 MG TABLET (FP) PO PRN (17:09)
[2016-12-14] MEDS ORDERED: ONDANSETRON 4 MG/2 ML VIAL IVPB PRN (17:09)
[2016-12-14] MEDS ORDERED: IBUPROFEN 800 MG/8 ML IJ IVPB ONE (20:31)
[2016-12-14] MEDS: DOCUSATE SODIUM 100 MG CAPSULE (FP) PO SCH (22:06)
[2016-12-14] MEDS: POTASSIUM CITRATE/CITRIC ACID 2 MEQ/ML ML PO SCH (22:07)
[2016-12-14] MEDS: morphine SO4 SUSTAINED ACTING 15 MG TABLET.SA PO SCH (22:08)
[2016-12-14] MEDS: SENNOSIDES 8.6MG TABLET (FP) PO SCH (22:09)
[2016-12-14] MEDS: ELMIRON 100 MG PO SCH (22:09)
[2016-12-14] MEDS ORDERED: HYDROmorphone HCL CARPU-JECT 1 MG/1 ML DISP.SYRIN IVPUSH PRN (22:29)
[2016-12-14] MEDS ORDERED: LORAZEPAM CARPU-JECT 2 MG/ML DISP.SYRIN IVPUSH ONE (22:37)
[2016-12-14] MEDS ORDERED: ACETAMINOPHEN/CAFFEINE/BUTALBITAL 1 TAB PO ONE (23:02)
--- NOTE | 2016-12-14 23:19 | RAPID ---
Physical Examination Vital Signs: Vital Signs Temperature 104.4 F H 12/14/16 20:18 Pulse Rate 112 H 12/14/16 20:02 Respiratory Rate 18 12/14/16 20:02 Blood Pressure 123/69 12/14/16 20:02 O2 Sat by Pulse Oximetry (%) 94 L 12/14/16 20:02 Constitutional: Yes: Anxious, Severe Distress Eyes: Yes: Conjunctiva Clear, EOM Intact, PERRL HENT: Yes: Atraumatic Neck: Yes: Supple Cardiovascular: Yes: Regular Rate and Rhythm, S1, S2 Gastrointestinal: Yes: Normal Bowel Sounds, Soft ...Rectal Exam: Yes: Deferred Renal/: Yes: Hematuria, Other (No swelling, no redness, no tenderness to penis and scrotum. Normal cremasteric reflex) Musculoskeletal: Yes: Back Pain Edema: No Peripheral Pulses WNL: Yes Integumentary: Yes: WNL Neurological: Yes: Alert, Oriented, Babinski negative, Cran Nerves II-XII Intact , Numbness (head numbness and left lower ext numbness and tinlging, both old), Unsteady Gait, Weakness ...Motor Strength: LUE (4/5), LLE (4/5), RUE (4/5), RLE (5/5) Psychiatric: Yes: Alert, Oriented, Agitated, Suicidal Ideation Rapid Response - Rapid Response Assessment: Was called to assess a 51 year old male s/p cystoscopy from Dr Reid discharged yesterday from the hospital where he was admitted for Sepsis from UTI. Pt patient was having severe pain right inguinal pain, 10/10, burning, constant, worsening with urination. Since being discharge pt has been having severe pain in left groin radiating to scrotum not controlled by his regular pain medication which he take for chronic back pain. Pt has was also very anxious agitated, with suicidal though and intent but no concrete plan. He said he just want to end it since he is having so much pain, he has been through so much in his life. Pt also complained of head numbness and left leg numbness and weakness along to back pain, but these symptoms are old. There was No new finding on neurological exam. CBC, BMP 12/14/16 11:35 12/14/16 11:35 Laboratory Tests 12/14/16 12/14/16 11:45 12:10 VBG pH 7.50 H POC VBG pCO2 35.9 L Urine Ketones Trace H Urine Blood 2+ H Urine Nitrite Positive Ur Leukocyte Esterase 2+ H Urine RBC 24 Urine WBC 123 Impression UTI Prostatitis fever r/o sepsis Suicidal ideation without a plan Anxiety Plan Dilaudid 1mg q4h prn Ativan 2mg IV once NS 125ml/h Fiorecet PO for headache Consult Dr Reid urology One to one sitter Suicide precaution Psychiatry consult Dr Garcia Ibuprofen/Tylenol for fever F/u blood culture f/u urine culture cbc in am CT head w/o contrast
[2016-12-15] MEDS: SODIUM CHLORIDE 1,000 ML IV SCH ×3 (00:22→20:08)
[2016-12-15] MEDS: PHENAZOPYRIDINE HCL 100 MG TABLET (FP) PO SCH ×4 (00:22→22:00)
[2016-12-15 00:39] VITALS: BMI 29.7
[2016-12-15] MEDS: morphine SO4 SUSTAINED ACTING 15 MG TABLET.SA PO SCH ×3 (06:30→21:54)
[2016-12-15] MEDS: ELMIRON 100 MG PO SCH ×3 (06:30→21:57)
[2016-12-15] MEDS: HYDROmorphone HCL CARPU-JECT 1 MG/1 ML DISP.SYRIN IVPB PRN ×4 (06:43→20:07)
[2016-12-15 08:14] LABS: ALBUMIN 2.8 g/dl (3.4-5.0); ALK PHOS 64 U/L (45-117); ANION GAP 7 (8-16); BILIRUBIN,TOTAL 0.6 mg/dL (0.2-1.0); CALCIUM 8.3 mg/dL (8.5-10.1); CO2 28 mmol/L (21-32); COCKROFT - GAULT 123.56; CREATININE 0.8 mg/dL (0.7-1.3); GLUCOSE,RANDOM 82 mg/dL (74-106); MAGNESIUM 2.2 mg/dL (1.8-2.4); SGOT/AST 22 U/L (15-37); SGPT/ALT 23 U/L (12-78); TOT PROT 5.8 g/dl (6.4-8.2)
[2016-12-15] MEDS: TAMSULOSIN HCL 0.4 MG CAP.ER.24H (FP) PO SCH (08:47)
[2016-12-15] MEDS ORDERED: PT OWN MED DRAWER 7, Y5N ONE (09:23)
[2016-12-15] MEDS: DOCUSATE SODIUM 100 MG CAPSULE (FP) PO SCH ×2 (09:48→21:54)
[2016-12-15] MEDS: RANITIDINE HCL 150 MG TABLET (FP) PO SCH (09:48)
[2016-12-15] MEDS: ENOXAPARIN NA (PORCINE) 40 MG/0.4 ML DISP.SYRIN SQ SCH (09:49)
[2016-12-15] MEDS: POTASSIUM CITRATE/CITRIC ACID 2 MEQ/ML ML PO SCH ×2 (09:50→21:55)
[2016-12-15] MEDS ORDERED: ACETAMINOPHEN/CAFFEINE/BUTALBITAL 1 TAB PO PRN (09:58)
[2016-12-15] MEDS ORDERED: CEFTRIAXONE 100 ML IVPB ONE (10:00)
[2016-12-15 11:39] LABS: BASOPHIL 0.4 % (0-2.0); EOSINOPHIL 0.4 % (0-4.5); MCH 27.4 pg (25.7-33.7); MCHC 32.6 g/dl (32.0-35.9); NEUTROPHILS 76.4 % (42.8-82.8); PLATELET COUNT 202 K/MM3 (134-434); RDW 14.1 % (11.9-15.9); WHITE BLOOD COUNT 17.3 K/mm3 (4.0-10.0)
--- NOTE | 2016-12-15 13:41 | PN ---
Physical Exam: SUBJECTIVE: Patient seen and examined. He denies any chest pain or shortness of breath. Son is at the bedside and states that patient becomes confused when he takes the Fiorcet. Patient states he is having pain on his left groin area that he describes as "burning". He was unable to tolerate palpation of that area. Ordered ultrasound of left groin to r/o abscess/torsion OBJECTIVE: Will d/c Fiorcet and scheduled Tylenol for headache pain. Patient is asking for a new urologist for a second opinion - new urologist consulted WBC increased to 17.3, also febrile, TMAX 104F. Rapid response overnight for severe pain left inguinal pain, anxiety with suicidal thoughts with no concrete plan. Vital Signs Period Temp Pulse Resp BP Sys/Castro Pulse Ox Last 24 Hr 98.7 F-104.4 F 100-112 18-20 104-123/69-70 94-94 GGENERAL: The patient is awake, alert, and fully oriented, in no acute distress. HEAD: Normal with no signs of trauma. EYES: sclera anicteric, conjunctiva clear. No ptosis. ENT: Ears normal, nares patent, oropharynx clear without exudates, moist mucous membranes. NECK: Trachea midline, full range of motion, supple. LUNGS: Breath sounds equal, clear to auscultation bilaterally, no wheezes, no crackles, no accessory muscle use. HEART: Regular rate and rhythm ABDOMEN: Soft, nontender, nondistended, normoactive bowel sounds, no guarding, no rebound, no hepatosplenomegaly, no masses. EXTREMITIES: no edema. NEUROLOGICAL: Normal speech, gait not observed - uses cane at home PSYCH: Normal mood, normal affect. SKIN: c/o of left groin pain Laboratory Results - last 24 hr 12/15/16 12/15/16 06:15 06:15 WBC 17.3 H D RBC 4.81 Hgb 13.2 Hct 40.4 MCV 84.0 MCHC 32.6 RDW 14.1 Plt Count 202 MPV 9.0 Neutrophils % 76.4 Lymphocytes % 11.4 Monocytes % 11.4 H Eosinophils % 0.4 D Basophils % 0.4 D Sodium 144 Potassium 3.9 Chloride 109 H Carbon Dioxide 28 Anion Gap 7 L BUN 7 D Creatinine 0.8 Creat Clearance w eGFR > 60 Random Glucose 82 D Calcium 8.3 L Magnesium 2.2 Total Bilirubin 0.6 D AST 22 ALT 23 Alkaline Phosphatase 64 Total Protein 5.8 L Albumin 2.8 L Active Medications Generic Name Dose Route Start Last Admin Trade Name Srinivasq PRN Reason Stop Dose Admin Acetaminophen 650 mg 12/14/16 17:09 Tylenol - PO Q4H PRN FEVER OR PAIN Acetaminophen/Butalbital/Caffeine 1 tablet 12/15/16 09:58 12/15/16 10:46 Fioricet - PO 1 tablet Q6H PRN Administration FEVER OR PAIN Docusate Sodium 100 mg 12/14/16 22:00 12/15/16 09:48 Colace - PO 100 mg BID KRISTINE Administration Enoxaparin Sodium 40 mg 12/15/16 10:00 12/15/16 09:49 Lovenox - SQ 40 mg DAILY KRISTINE Administration Hydromorphone HCl 1 mg 12/15/16 06:36 12/15/16 11:18 Dilaudid Injection - IVPB 1 mg Q4H PRN Administration PAIN Sodium Chloride 1,000 mls @ 125 mls/hr 12/14/16 22:45 12/15/16 06:29 Normal Saline - IV 125 mls/hr ASDIR KRISTINE Administration Morphine Sulfate 15 mg 12/14/16 22:00 12/15/16 13:28 Ms Contin - PO 15 mg TID KRISTINE Administration Elmiron 100 Mg 100 mg 12/14/16 22:00 12/15/16 06:30 Capsule - Patient PO 100 mg Own Med TID KRISTINE Administration Ondansetron HCl 4 mg 12/14/16 17:09 Zofran Injection IVPB Q6H PRN NAUSEA Phenazopyridine HCl 100 mg 12/14/16 23:30 12/15/16 06:30 Pyridium - PO 100 mg TID KRISTINE Administration Potassium Citrate/Citric Acid 10 meq 12/14/16 22:00 12/15/16 09:50 Cytra-K - PO 10 meq BID KRISTINE Administration Ranitidine HCl 75 mg 12/15/16 10:00 12/15/16 09:48 Zantac - PO 75 mg DAILY KRISTINE Administration Senna 2 tab 12/14/16 22:00 12/14/16 22:09 Senna - PO 2 tab HS KRISTINE Administration Tamsulosin HCl 0.4 mg 12/15/16 08:30 12/15/16 08:47 Flomax - PO 0.4 mg DAILY@0830 [facility] Administration ASSESSMENT/PLAN: Patient is a 51 year old man with a significant past medical history of diverticulitis, BPH, prostatitis and interstitial cystitis who presented to the ED on 12/10/2016 with fever of 104F associated with chills. He had a recent cystoscopy on 12/08/2016. He was discharged a day ago and returns for left lower abdominal groin pain and fever. ID: Sepsis - unclear etiology - acute Assessment/Plan: Patient admitted with fever of 104F with chills/rigors Urine culture negative, blood cultures negative He is status post cystoscopy on 12/09 and was treated with Meropenem on last admission. Was sent home with Cipro 500mg BID to continue as outpatient x 11 days WBC on this admission stable but now bumped up to 14.3 Restarted on Meropenem 1 gram by ID Vitals stable NS @ 125cc/hr Having left groin pain, sono ordered to rule out torsion Urology consulted and following : BPH/Interstitial Cystitis Assessment/Plan: On Flomax 0.4mg On Pyridium, Voiding well Accurate intake and output Muscular/Skeletal: Chronic back pain/Lumbar pain Assessment/Plan: On Dilaudid prn F.E.N. Fluids: NS @ 125cc/hr Electrolytes: monitor BMP Nutrition: low sodium diet Prophylaxis: DVT: Lovenox 40mg daily GI: zofran, colace Visit type - Emergency Visit Emergency Visit: Yes ED Registration Date: 12/15/16 Care time: The patient presented to the Emergency Department on the above date and was hospitalized for further evaluation of their emergent condition. - New Patient This patient is new to me today: No - Critical Care Critical Care patient: No - Discharge Referral Referred to [facility] Med P.C.: No
--- NOTE | 2016-12-15 14:21 | CONSULT ---
Consult Consult Specialty:: infectious diseases Reason for Consultation:: fever and testicular pain - History of Present Illness History of Present Illness: 51-year-old male with a history of diverticulitis, BPH, prostatitis, nephrolithiasis, interstitial cystitis, and chronic back pain (on morphine), recently admitted here from 12/10-12/13 with urosepsis s/p cystoscopy on 12/08. He was sent home on Cipro 500mg bid. This morning, he feels to weak to get out of bed. He is complaining of shaking chills. He complains of LLQ pain. the above history taken from the chart patients son in the room says he is very confused and according to the son the patient after going home suddenly developed shaking chills and fever and excruciating pain in the left in inguinal region patient admitted with high fever - History Source History Provided By: Family Member Limitations to Obtaining History: Clinical Condition - Alcohol/Substance Use Hx Alcohol Use: No - Smoking History Smoking history: Never smoked Have you smoked in the past 12 months: No Aproximately how many cigarettes per day: 20 If you are a former smoker, when did you quit?: 2008 Home Medications - Allergies Allergies/Adverse Reactions: Allergies Allergy/AdvReac Type Severity Reaction Status Date / Time Iodinated Contrast Media - Allergy Verified 12/14/16 10:16 Oral and - Home Medications Home Medications: Ambulatory Orders Pentosan Polysulfate Sodium [Elmiron] 100 mg PO TID 08/27/15 Ranitidine HCl [Zantac 75] 75 mg PO DAILY 08/27/15 Tamsulosin HCl [Flomax -] 0.4 mg PO DAILY 08/27/15 Docusate Sodium [Colace -] 100 mg PO BID 04/30/16 Sennosides [Perdiem] 15 mg PO DAILY 04/30/16 Morphine *Sr* [Ms Contin -] 15 mg PO Q8H 12/09/16 Potassium Citrate [Potassium Citrate ER] 10 meq PO BID 12/09/16 Ciprofloxacin HCl [Cipro] 500 mg PO BID #22 tablet 12/13/16 Phenazopyridine HCl [Pyridium -] 100 mg PO PC #90 tablet 12/13/16 Review of Systems - Review of Systems Constitutional: reports: Chills, Fever Eyes: reports: No Symptoms HENT: reports: No Symptoms Neck: reports: No Symptoms Cardiovascular: reports: No Symptoms Respiratory: reports: No Symptoms Gastrointestinal: reports: No Symptoms Genitourinary: reports: Testicular Pain, Other Musculoskeletal: reports: No Symptoms Integumentary: reports: No Symptoms Neurological: reports: Confusion Endocrine: reports: No Symptoms Hematology/Lymphatic: reports: No Symptoms Psychiatric: reports: No Symptoms Physical Exam Vital Signs: Vital Signs Temperature 98.4 F 12/15/16 13:44 Pulse Rate 105 H 12/15/16 13:44 Respiratory Rate 20 12/15/16 13:44 Blood Pressure 136/87 12/15/16 13:44 O2 Sat by Pulse Oximetry (%) 94 L 12/15/16 03:31 Constitutional: Yes: Moderate Distress Eyes: Yes: Conjunctiva Clear Neck: Yes: Supple Cardiovascular: Yes: Regular Rate and Rhythm Respiratory: Yes: Regular, CTA Bilaterally Gastrointestinal: Yes: Normal Bowel Sounds, Soft Renal/: Yes: Other (patient has swelling of the left testicle also when touching the testicle patient has severe pain) Musculoskeletal: Yes: WNL Extremities: Yes: WNL Neurological: Yes: Alert, Confusion Psychiatric: Yes: Alert, Other Labs: CBC, BMP 12/15/16 06:15 12/15/16 06:15 Imaging - Results Chest X-ray: Report Reviewed, Image Reviewed Cat Scan: Report Reviewed, Image Reviewed Assessment/Plan Problem List - Problem (1) Urinary tract infection Code(s): N39.0 - URINARY TRACT INFECTION, SITE NOT SPECIFIED (2) Sepsis Code(s): A41.9 - SEPSIS, UNSPECIFIED ORGANISM Qualifiers: Sepsis type: sepsis due to unspecified organism Qualified Code(s): A41.9 - Sepsis, unspecified organism (3) Weakness Code(s): R53.1 - WEAKNESS (4) Abdominal pain Code(s): R10.9 - UNSPECIFIED ABDOMINAL PAIN (5) Chronic low back pain Code(s): M54.5 - LOW BACK PAIN G89.29 - OTHER CHRONIC PAIN (6) testicular torsion r/o 7 epdidymo orchitits plan will order u/s of the testis elevation will restart iv abx rest continue as per primary team
--- NOTE | 2016-12-15 15:45 | CON.GU ---
Consult - History of Present Illness History of Present Illness: 51 yo male with h/i interstitial cystitis, recently admitted for sepsis after cysto/hydrodistension, now readmitted within 24 hrs of discharge for fever and left groin/testicle pain - Alcohol/Substance Use Hx Alcohol Use: No - Smoking History Smoking history: Never smoked Have you smoked in the past 12 months: No Aproximately how many cigarettes per day: 20 If you are a former smoker, when did you quit?: 2008 Home Medications - Allergies Allergies/Adverse Reactions: Allergies Allergy/AdvReac Type Severity Reaction Status Date / Time Iodinated Contrast Media - Allergy Verified 12/14/16 10:16 Oral and - Home Medications Home Medications: Ambulatory Orders Pentosan Polysulfate Sodium [Elmiron] 100 mg PO TID 08/27/15 Ranitidine HCl [Zantac 75] 75 mg PO DAILY 08/27/15 Tamsulosin HCl [Flomax -] 0.4 mg PO DAILY 08/27/15 Docusate Sodium [Colace -] 100 mg PO BID 04/30/16 Sennosides [Perdiem] 15 mg PO DAILY 04/30/16 Morphine *Sr* [Ms Contin -] 15 mg PO Q8H 12/09/16 Potassium Citrate [Potassium Citrate ER] 10 meq PO BID 12/09/16 Ciprofloxacin HCl [Cipro] 500 mg PO BID #22 tablet 12/13/16 Phenazopyridine HCl [Pyridium -] 100 mg PO PC #90 tablet 12/13/16 Physical Exam- Vital Signs: Vital Signs Temperature 98.4 F 12/15/16 13:44 Pulse Rate 105 H 12/15/16 13:44 Respiratory Rate 20 12/15/16 13:44 Blood Pressure 136/87 12/15/16 13:44 O2 Sat by Pulse Oximetry (%) 94 L 12/15/16 03:31 Testicles: Yes: Tenderness (left groin/testis) Labs: CBC, BMP 12/15/16 06:15 12/15/16 06:15 Problem List - Problems (1) Epididymo-orchitis Assessment/Plan: scrotal sono, antibiotics as per ID Code(s): N45.3 - EPIDIDYMO-ORCHITIS
[2016-12-15] MEDS: MEROPENEM 1 GM in DEXTROSE 5%-WATER - 100 ML IVPB SCH ×2 (16:52→21:53)
[2016-12-15] MEDS: ACETAMINOPHEN 325 MG TABLET (FP) PO SCH ×2 (16:56→17:40)
[2016-12-15] MEDS: SENNOSIDES 8.6MG TABLET (FP) PO SCH (21:54)
[2016-12-16] MEDS: SODIUM CHLORIDE 1,000 ML IV SCH ×3 (01:04→17:11)
[2016-12-16] MEDS: ACETAMINOPHEN 325 MG TABLET (FP) PO SCH ×4 (01:05→18:41)
[2016-12-16] MEDS: HYDROmorphone HCL CARPU-JECT 1 MG/1 ML DISP.SYRIN IVPB PRN ×5 (02:58→19:34)
[2016-12-16] MEDS: MEROPENEM 1 GM in DEXTROSE 5%-WATER - 100 ML IVPB SCH ×2 (03:50→10:53)
[2016-12-16] MEDS: morphine SO4 SUSTAINED ACTING 15 MG TABLET.SA PO SCH ×3 (06:24→21:19)
[2016-12-16] MEDS: ELMIRON 100 MG PO SCH ×3 (06:26→21:16)
[2016-12-16] MEDS: PHENAZOPYRIDINE HCL 100 MG TABLET (FP) PO SCH ×3 (06:26→21:15)
[2016-12-16 07:25] LABS: MEAN CELL VOLUME 82.3 fl (80-96); MEAN PLT VOLUME 8.6 fl (7.5-11.1); PLATELET COUNT 224 K/MM3 (134-434); RDW 13.9 % (11.9-15.9); WHITE BLOOD COUNT 9.2 K/mm3 (4.0-10.0)
[2016-12-16 07:56] LABS: ALK PHOS 62 U/L (45-117); ANION GAP 7 (8-16); BILIRUBIN,TOTAL 0.5 mg/dL (0.2-1.0); CALCIUM 8.3 mg/dL (8.5-10.1); CO2 29 mmol/L (21-32); COCKROFT - GAULT 123.56; CREATININE 0.8 mg/dL (0.7-1.3); GLUCOSE,RANDOM 85 mg/dL (74-106); SGOT/AST 20 U/L (15-37); SGPT/ALT 23 U/L (12-78)
[2016-12-16] MEDS: TAMSULOSIN HCL 0.4 MG CAP.ER.24H (FP) PO SCH (08:27)
[2016-12-16 09:55] LABS: PLATELET ESTIMATE ADEQUATE (NORMAL)
[2016-12-16] MEDS: RANITIDINE HCL 150 MG TABLET (FP) PO SCH (10:53)
[2016-12-16] MEDS: ENOXAPARIN NA (PORCINE) 40 MG/0.4 ML DISP.SYRIN SQ SCH (10:53)
[2016-12-16] MEDS: DOCUSATE SODIUM 100 MG CAPSULE (FP) PO SCH ×2 (10:54→21:14)
--- NOTE | 2016-12-16 11:02 | PN ---
Progress Note, Physician History of Present Illness: feeling much better still pain continuing afebrile wbc normalized - Current Medication List Current Medications: Active Medications Acetaminophen (Tylenol -) 650 mg PO Q6HPO [facility] Last Admin: 12/16/16 06:25 Dose: 650 mg Ciprofloxacin (Cipro (Restricted To Id)) 500 mg PO BID [facility] Docusate Sodium (Colace -) 100 mg PO BID [facility] Last Admin: 12/16/16 10:54 Dose: 100 mg Enoxaparin Sodium (Lovenox -) 40 mg SQ DAILY [facility] Last Admin: 12/16/16 10:53 Dose: 40 mg Hydromorphone HCl (Dilaudid Injection -) 1 mg IVPB Q4H PRN PRN Reason: PAIN Last Admin: 12/16/16 08:31 Dose: 1 mg Sodium Chloride (Normal Saline -) 1,000 mls @ 125 mls/hr IV ASDIR [facility] Last Admin: 12/16/16 06:27 Dose: 125 mls/hr Morphine Sulfate (Ms Contin -) 15 mg PO TID [facility] Last Admin: 12/16/16 06:24 Dose: 15 mg Elmiron 100 Mg Capsule - Patient Own Med 100 mg PO TID [facility] Last Admin: 12/16/16 06:26 Dose: 100 mg Ondansetron HCl (Zofran Injection) 4 mg IVPB Q6H PRN PRN Reason: NAUSEA Phenazopyridine HCl (Pyridium -) 100 mg PO TID [facility] Last Admin: 12/16/16 06:26 Dose: 100 mg Potassium Citrate/Citric Acid (Cytra-K -) 10 meq PO BID [facility] Last Admin: 12/15/16 21:55 Dose: 10 meq Ranitidine HCl (Zantac -) 75 mg PO DAILY [facility] Last Admin: 12/16/16 10:53 Dose: 75 mg Senna (Senna -) 2 tab PO HS [facility] Last Admin: 12/15/16 21:54 Dose: 2 tab Tamsulosin HCl (Flomax -) 0.4 mg PO DAILY@0830 [facility] Last Admin: 12/16/16 08:27 Dose: 0.4 mg - Objective Vital Signs: Vital Signs Temperature 98.4 F 12/16/16 06:00 Pulse Rate 87 12/16/16 06:00 Respiratory Rate 20 12/16/16 06:00 Blood Pressure 141/89 12/16/16 06:00 O2 Sat by Pulse Oximetry (%) 96 12/16/16 03:00 Constitutional: Yes: Calm, Mild Distress Cardiovascular: Yes: Regular Rate and Rhythm Respiratory: Yes: Regular, CTA Bilaterally Genitourinary: Yes: Other (testicular pain still there) Musculoskeletal: Yes: WNL Extremities: Yes: WNL Neurological: Yes: Alert, Oriented Psychiatric: Yes: Alert Labs: CBC, BMP 12/16/16 06:25 12/16/16 06:25 INR, PTT INR 1.10 (0.82-1.09) 12/14/16 11:35 - ....Imaging Ultrasound: Report Reviewed, Image Reviewed Assessment/Plan Problem List - Problem (1) Urinary tract infection Code(s): N39.0 - URINARY TRACT INFECTION, SITE NOT SPECIFIED (2) Sepsis Code(s): A41.9 - SEPSIS, UNSPECIFIED ORGANISM Qualifiers: Sepsis type: sepsis due to unspecified organism Qualified Code(s): A41.9 - Sepsis, unspecified organism (3) Weakness Code(s): R53.1 - WEAKNESS (4) Abdominal pain Code(s): R10.9 - UNSPECIFIED ABDOMINAL PAIN (5) Chronic low back pain Code(s): M54.5 - LOW BACK PAIN G89.29 - OTHER CHRONIC PAIN (6) testicular torsion r/o 7 epdidymo orchitits plan will stop iv abx switch back to cipro continue to monitor pain mgmt
[2016-12-16] MEDS ORDERED: PANTOPRAZOLE 40 MG TABLET (FP) PO ONE (11:30)
[2016-12-16] MEDS ORDERED: TAMSULOSIN HCL 0.4 MG CAP.ER.24H (FP) PO ONE (14:15)
[2016-12-16] MEDS ORDERED: PT OWN MED DRAWER 7, Y5N ONE ×4 (16:00→22:32)
[2016-12-16] MEDS: CIPROFLOXACIN 500 MG TABLET (RESTRICTED TO ID) PO SCH ×2 (16:02→21:14)
--- NOTE | 2016-12-16 17:18 | PN ---
Physical Exam: SUBJECTIVE: Patient seen and examined. Son at the bedside. Patient denies discomfort. States the Dilaudid helps his left groin pain but usually wears off after 3 hours. Son states that his father is no longer having hallucinations after the Fiorecet was discontinued. OBJECTIVE: I reviewed the results of the sonogram taken yesterday with both patient and son. Dilaudid changed to every 3 hours as needed for persistent left groin pain patient son reports patient is having urinary frequency, will order repeat UA and culture and monitor Vital Signs Period Temp Pulse Resp BP Sys/Castro Pulse Ox Last 24 Hr 97.9 F-98.4 F 78-105 18-20 108-141/65-89 96-96 GGENERAL: The patient is awake, alert, and fully oriented, in no acute distress. HEAD: Normal with no signs of trauma. EYES: sclera anicteric, conjunctiva clear. No ptosis. ENT: Ears normal, nares patent, oropharynx clear without exudates, moist mucous membranes. NECK: Trachea midline, full range of motion, supple. LUNGS: Breath sounds equal, clear to auscultation bilaterally, no wheezes, no crackles, no accessory muscle use. HEART: Regular rate and rhythm ABDOMEN: Soft, nontender, nondistended, normoactive bowel sounds, no guarding, no rebound, no hepatosplenomegaly, no masses. EXTREMITIES: no edema. NEUROLOGICAL: Normal speech, gait not observed - uses cane at home PSYCH: Normal mood, normal affect. SKIN: c/o of left groin pain Laboratory Results - last 24 hr 12/16/16 12/16/16 06:25 06:25 WBC 9.2 D RBC 4.81 Hgb 13.5 Hct 39.6 MCV 82.3 MCHC 34.0 RDW 13.9 Plt Count 224 MPV 8.6 Neutrophils % 67.0 Lymphocytes % 18.0 D Monocytes % 9.0 Eosinophils % 3.0 D Myelocytes 3 H Differential Comment Manual diff done Platelet Estimate Adequate Sodium 142 Potassium 3.7 Chloride 106 Carbon Dioxide 29 Anion Gap 7 L BUN 5 L D Creatinine 0.8 Creat Clearance w eGFR > 60 Random Glucose 85 Calcium 8.3 L Total Bilirubin 0.5 AST 20 ALT 23 Alkaline Phosphatase 62 Total Protein 6.0 L Albumin 3.0 L Active Medications Generic Name Dose Route Start Last Admin Trade Name Freq PRN Reason Stop Dose Admin Acetaminophen 650 mg 12/15/16 13:45 12/16/16 11:59 Tylenol - PO 650 mg Q6HPO KRISTINE Administration Ciprofloxacin 500 mg 12/16/16 11:00 12/16/16 16:02 Cipro (Restricted To Id) PO 500 mg BID KRISTINE Administration Docusate Sodium 100 mg 12/14/16 22:00 12/16/16 10:54 Colace - PO 100 mg BID KRISTINE Administration Enoxaparin Sodium 40 mg 12/15/16 10:00 12/16/16 10:53 Lovenox - SQ 40 mg DAILY KRISTINE Administration Hydromorphone HCl 1 mg 12/16/16 14:09 12/16/16 15:54 Dilaudid Injection - IVPB 1 mg Q3H PRN Administration PAIN Sodium Chloride 1,000 mls @ 125 mls/hr 12/14/16 22:45 12/16/16 17:11 Normal Saline - IV 125 mls/hr ASDIR KRISTINE Administration Morphine Sulfate 15 mg 12/14/16 22:00 12/16/16 15:48 Ms Contin - PO 15 mg TID KRISTINE Administration Elmiron 100 Mg 100 mg 12/14/16 22:00 12/16/16 06:26 Capsule - Patient PO 100 mg Own Med TID KRISTINE Administration Ondansetron HCl 4 mg 12/14/16 17:09 Zofran Injection IVPB Q6H PRN NAUSEA Phenazopyridine HCl 100 mg 12/14/16 23:30 12/16/16 06:26 Pyridium - PO 100 mg TID KRISTINE Administration Potassium Citrate/Citric Acid 10 meq 12/14/16 22:00 12/15/16 21:55 Cytra-K - PO 10 meq BID KRISTINE Administration Ranitidine HCl 75 mg 12/15/16 10:00 12/16/16 10:53 Zantac - PO 75 mg DAILY KRISTINE Administration Senna 2 tab 12/14/16 22:00 12/15/16 21:54 Senna - PO 2 tab HS KRISTINE Administration Tamsulosin HCl 0.4 mg 12/15/16 08:30 12/16/16 08:27 Flomax - PO 0.4 mg DAILY@0830 K[facility]INE Administration ASSESSMENT/PLAN: Patient is a 51 year old man with a significant past medical history of diverticulitis, BPH, prostatitis and interstitial cystitis who presented to the ED on 12/10/2016 with fever of 104F associated with chills. He had a recent cystoscopy on 12/08/2016. He was recently hospitalized at [place] for urosepsis (between 12/10 > 12/13) and returned to the ER on 12/15/2016 with left lower abdominal groin pain and fever of 104F. Imaging: Scrotal ultrasound 12/15/2016: No evidence of testicular torsion, heterogenous and course echotexture of the left testicle which is non specific w/o evidence of a discrete mass. Slightly prominent vascular flow in the left epididymis on the color doppler images when compared to the right, cannot rule out mild epididymitis. ID: Sepsis rule out- unclear etiology - acute Assessment/Plan: Patient admitted on 12/15 with fever of 104F with chills/rigors Urine culture negative, blood cultures negative to date TMAX 102F/104F on 12/14/2016, afebrile since He is status post cystoscopy on 12/09 and was treated with Meropenem on last admission. Was sent home with Cipro 500mg BID to continue as outpatient x 11 days WBC now 9.2, Meropenem d/cd by ID and patient started on Cipro 500mg BID Vitals stable NS @ 125cc/hr Having left groin pain, sono negative for torsion, epididymitis cannot be ruled out Urology consulted and following : BPH/Interstitial Cystitis Assessment/Plan: On Flomax 0.4mg, given one extra dose of Flomax today On Pyridium, Voiding well Accurate intake and output Bladder scan q shift Muscular/Skeletal: Chronic back pain/Lumbar pain Assessment/Plan: On Dilaudid prn F.E.N. Fluids: NS @ 125cc/hr Electrolytes: Corrected calcium 9.4 Nutrition: low sodium diet Prophylaxis: DVT: Lovenox 40mg daily GI: zofran, colace Visit type - Emergency Visit Emergency Visit: Yes ED Registration Date: 12/15/16 Care time: The patient presented to the Emergency Department on the above date and was hospitalized for further evaluation of their emergent condition. - New Patient This patient is new to me today: No - Critical Care Critical Care patient: No - Discharge Referral Referred to [facility] Med P.C.: No
[2016-12-16] MEDS: POTASSIUM CITRATE/CITRIC ACID 2 MEQ/ML ML PO SCH ×2 (18:37→21:14)
[2016-12-16] MEDS ORDERED: INSULIN (NOVOLOG MIX 70/30) 100 UNITS/ML MDV SQ ONE (20:02)
[2016-12-16] MEDS: SENNOSIDES 8.6MG TABLET (FP) PO SCH (21:18)
[2016-12-16 22:25] LABS: URINE APPEARANCE CLEAR; URINE BILIRUBIN NEGATIVE (NEGATIVE); URINE COLOR AMBER; URINE GLUCOSE (UA) NEGATIVE (NEGATIVE); URINE KETONE NEGATIVE (NEGATIVE); URINE NITRITE POSITIVE (NEGATIVE); URINE PROTEIN NEGATIVE (NEGATIVE); URINE UROBILINOGEN NEGATIVE E.U./dl (0.2-1.0)
[2016-12-16 22:31] LABS: URINE BLOOD 2+ (NEGATIVE); URINE LEUK ESTERASE 1+ (NEGATIVE)
[2016-12-16 22:38] LABS: URINE MUCUS RARE; URINE RBC 22 /hpf (0-3); URINE WBC 145 /hpf (3-5)
[2016-12-17] MEDS: SODIUM CHLORIDE 1,000 ML IV SCH ×4 (00:04→16:44)
[2016-12-17] MEDS: ACETAMINOPHEN 325 MG TABLET (FP) PO SCH ×4 (00:08→18:01)
[2016-12-17] MEDS: HYDROmorphone HCL CARPU-JECT 1 MG/1 ML DISP.SYRIN IVPB PRN ×8 (00:08→23:43)
[2016-12-17] MEDS: morphine SO4 SUSTAINED ACTING 15 MG TABLET.SA PO SCH ×3 (05:57→23:28)
[2016-12-17] MEDS: ELMIRON 100 MG PO SCH ×3 (05:58→23:34)
[2016-12-17] MEDS: PHENAZOPYRIDINE HCL 100 MG TABLET (FP) PO SCH ×3 (05:58→23:28)
[2016-12-17 07:57] LABS: MCH 28.1 pg (25.7-33.7); MCHC 33.9 g/dl (32.0-35.9); MEAN CELL VOLUME 82.9 fl (80-96); MEAN PLT VOLUME 8.5 fl (7.5-11.1); PLATELET COUNT 216 K/MM3 (134-434); RDW 13.9 % (11.9-15.9); WHITE BLOOD COUNT 6.6 K/mm3 (4.0-10.0)
[2016-12-17 08:06] LABS: ALBUMIN 2.9 g/dl (3.4-5.0); ANION GAP 8 (8-16); BILIRUBIN,TOTAL 0.5 mg/dL (0.2-1.0); CALCIUM 8.2 mg/dL (8.5-10.1); CO2 29 mmol/L (21-32); COCKROFT - GAULT 123.56; CREATININE 0.8 mg/dL (0.7-1.3); GLUCOSE,RANDOM 85 mg/dL (74-106); SGOT/AST 15 U/L (15-37); SGPT/ALT 22 U/L (12-78)
[2016-12-17 08:07] LABS: ALK PHOS 62 U/L (45-117); TOT PROT 5.9 g/dl (6.4-8.2)
[2016-12-17] MEDS: TAMSULOSIN HCL 0.4 MG CAP.ER.24H (FP) PO SCH (08:36)
[2016-12-17] MEDS ORDERED: PT OWN MED DRAWER 7, Y5N ONE ×2 (10:03→14:51)
[2016-12-17] MEDS: RANITIDINE HCL 150 MG TABLET (FP) PO SCH (10:11)
[2016-12-17] MEDS: DOCUSATE SODIUM 100 MG CAPSULE (FP) PO SCH ×2 (10:11→23:28)
[2016-12-17] MEDS: ENOXAPARIN NA (PORCINE) 40 MG/0.4 ML DISP.SYRIN SQ SCH (10:12)
[2016-12-17] MEDS: POTASSIUM CITRATE/CITRIC ACID 2 MEQ/ML ML PO SCH ×2 (10:14→23:29)
[2016-12-17] MEDS: CIPROFLOXACIN 500 MG TABLET (RESTRICTED TO ID) PO SCH ×2 (10:14→23:30)
[2016-12-17 11:28] LABS: PLATELET ESTIMATE ADEQUATE (NORMAL)
--- NOTE | 2016-12-17 12:51 | PN ---
Physical Exam: SUBJECTIVE: Patient seen and examined. at the bedside. Patient states he is having urinary frequency, states he went to the bathroom about 10 times this morning. Patient denies headache, shortness of breath OBJECTIVE: Bladder scan shows minimal <100cc of post void residual Remains afebrile, UA with +1 leuks, he is on Cipro 500mg BID Urine cultures pending Urology input appreciated, as pt/family is asking to see urologist Vital Signs Period Temp Pulse Resp BP Sys/Castro Pulse Ox Last 24 Hr 97.6 F-98.2 F 70-95 18-20 108-151/65-89 96-97 GGENERAL: The patient is awake, alert, and fully oriented, in no acute distress. HEAD: Normal with no signs of trauma. EYES: sclera anicteric, conjunctiva clear. No ptosis. ENT: Ears normal, nares patent, oropharynx clear without exudates, moist mucous membranes. NECK: Trachea midline, full range of motion, supple. LUNGS: Breath sounds equal, clear to auscultation bilaterally, no wheezes, no crackles, no accessory muscle use. HEART: Regular rate and rhythm ABDOMEN: Soft, nontender, nondistended, normoactive bowel sounds, no guarding, no rebound, no hepatosplenomegaly, no masses. EXTREMITIES: no edema. NEUROLOGICAL: Normal speech, gait not observed - uses cane at home PSYCH: Normal mood, normal affect. SKIN: c/o of left groin pain - relieved with Dilaudid Laboratory Results - last 24 hr 12/16/16 12/17/16 12/17/16 22:00 07:25 07:25 WBC 6.6 RBC 4.82 Hgb 13.6 Hct 40.0 MCV 82.9 MCHC 33.9 RDW 13.9 Plt Count 216 MPV 8.5 Neutrophils % 69.0 Lymphocytes % 16.0 Monocytes % 7.0 Eosinophils % 3.0 Basophils % 2.0 D Myelocytes 1 D Differential Comment Manual diff done Reactive Lymphocytes 2 Platelet Estimate Adequate Sodium 142 Potassium 3.6 Chloride 105 Carbon Dioxide 29 Anion Gap 8 BUN 5 L Creatinine 0.8 Creat Clearance w eGFR > 60 Random Glucose 85 Calcium 8.2 L Total Bilirubin 0.5 AST 15 D ALT 22 Alkaline Phosphatase 62 Total Protein 5.9 L Albumin 2.9 L Urine Color Lisa Urine Appearance Clear Urine pH 7.0 Ur Specific Austin 1.015 Urine Protein Negative Urine Glucose (UA) Negative Urine Ketones Negative Urine Blood 2+ H Urine Nitrite Positive Urine Bilirubin Negative Urine Urobilinogen Negative Ur Leukocyte Esterase 1+ H Urine RBC 22 Urine WBC 145 Urine Mucus Rare Active Medications Generic Name Dose Route Start Last Admin Trade Name Freq PRN Reason Stop Dose Admin Acetaminophen 650 mg 12/15/16 13:45 12/17/16 12:01 Tylenol - PO 650 mg Q6HPO KRISTINE Administration Ciprofloxacin 500 mg 12/16/16 11:00 12/17/16 10:14 Cipro (Restricted To Id) PO 500 mg BID KRISTINE Administration Docusate Sodium 100 mg 12/14/16 22:00 12/17/16 10:11 Colace - PO 100 mg BID KRISTINE Administration Enoxaparin Sodium 40 mg 12/15/16 10:00 12/17/16 10:12 Lovenox - SQ 40 mg DAILY KRISTINE Administration Hydromorphone HCl 1 mg 12/16/16 14:09 12/17/16 10:07 Dilaudid Injection - IVPB 1 mg Q3H PRN Administration PAIN Sodium Chloride 1,000 mls @ 125 mls/hr 12/14/16 22:45 12/17/16 12:01 Normal Saline - IV 125 mls/hr ASDIR KRISTINE Administration Morphine Sulfate 15 mg 12/14/16 22:00 12/17/16 05:57 Ms Contin - PO 15 mg TID KRISTINE Administration Elmiron 100 Mg 100 mg 12/14/16 22:00 12/17/16 05:58 Capsule - Patient PO 100 mg Own Med TID KRISTINE Administration Ondansetron HCl 4 mg 12/14/16 17:09 Zofran Injection IVPB Q6H PRN NAUSEA Phenazopyridine HCl 100 mg 12/14/16 23:30 12/17/16 05:58 Pyridium - PO 100 mg TID KRISTINE Administration Potassium Citrate/Citric Acid 10 meq 12/14/16 22:00 12/17/16 10:14 Cytra-K - PO 10 meq BID KRISTINE Administration Ranitidine HCl 75 mg 12/15/16 10:00 12/17/16 10:11 Zantac - PO 75 mg DAILY KRISTINE Administration Senna 2 tab 12/14/16 22:00 12/16/16 21:18 Senna - PO 2 tab HS KRISTINE Administration Tamsulosin HCl 0.4 mg 12/15/16 08:30 12/17/16 08:36 Flomax - PO 0.4 mg DAILY@0830 KRISTINE Administration ASSESSMENT/PLAN: Patient is a 51 year old man with a significant past medical history of diverticulitis, BPH, prostatitis and interstitial cystitis who presented to the ED on 12/10/2016 with fever of 104F associated with chills. He had a recent cystoscopy on 12/08/2016. He was recently hospitalized at [place] for urosepsis (between 12/10 > 12/13) and returned to the ER on 12/15/2016 with left lower abdominal groin pain and fever of 104F. Imaging: Scrotal ultrasound 12/15/2016: No evidence of testicular torsion, heterogenous and course echotexture of the left testicle which is non specific w/o evidence of a discrete mass. Slightly prominent vascular flow in the left epididymis on the color doppler images when compared to the right, cannot rule out mild epididymitis. ID: Sepsis rule out- unclear etiology Assessment/Plan: Patient admitted on 12/15 with fever of 104F with chills/rigors Lactic acid within normal limits Urine culture negative, blood cultures negative to date UA with +1 leuks, repeated urine culture - pending TMAX 102F/104F on 12/14/2016, afebrile since He is status post cystoscopy on 12/09 and was treated with Meropenem on last admission. Was sent home with Cipro 500mg BID to continue as outpatient x 11 days WBC now 6.6 Meropenem d/cd by ID and patient started on Cipro 500mg BID on 12/16 Vitals stable NS @ 75cc/hr Having left groin pain, sono negative for torsion, epididymitis cannot be ruled out Urology consulted and following : BPH/Interstitial Cystitis Assessment/Plan: On Flomax 0.4mg, given one extra dose of Flomax again today On Pyridium, Voiding well, no post void residual on bladder scan Accurate intake and output, Bladder scan q shift Muscular/Skeletal: Chronic back pain/Lumbar pain Assessment/Plan: On Dilaudid prn, MS Contin F.E.N. Fluids: NS @ 75cc/hr Electrolytes: wnl, bmp in a.m. Nutrition: low sodium diet Prophylaxis: DVT: Lovenox 40mg daily GI: olga felton Visit type - Emergency Visit Emergency Visit: Yes ED Registration Date: 12/15/16 Care time: The patient presented to the Emergency Department on the above date and was hospitalized for further evaluation of their emergent condition. - New Patient This patient is new to me today: No - Critical Care Critical Care patient: No - Discharge Referral Referred to [facility] Med P[facility] No
[2016-12-17] MEDS ORDERED: TAMSULOSIN HCL 0.4 MG CAP.ER.24H (FP) PO ONE (13:45)
--- NOTE | 2016-12-17 18:09 | PN ---
Progress Note, Physician History of Present Illness: stable main issue is pain in the left testes - Current Medication List Current Medications: Active Medications Acetaminophen (Tylenol -) 650 mg PO Q6HPO [facility] Last Admin: 12/17/16 18:01 Dose: 650 mg Ciprofloxacin (Cipro (Restricted To Id)) 500 mg PO BID [facility] Last Admin: 12/17/16 10:14 Dose: 500 mg Docusate Sodium (Colace -) 100 mg PO BID [facility] Last Admin: 12/17/16 10:11 Dose: 100 mg Enoxaparin Sodium (Lovenox -) 40 mg SQ DAILY [facility] Last Admin: 12/17/16 10:12 Dose: 40 mg Hydromorphone HCl (Dilaudid Injection -) 1 mg IVPB Q3H PRN PRN Reason: PAIN Last Admin: 12/17/16 16:58 Dose: 1 mg Sodium Chloride (Normal Saline -) 1,000 mls @ 75 mls/hr IV ASDIR [facility] Last Admin: 12/17/16 16:44 Dose: 75 mls/hr Morphine Sulfate (Ms Contin -) 15 mg PO TID [facility] Last Admin: 12/17/16 14:25 Dose: 15 mg Elmiron 100 Mg Capsule - Patient Own Med 100 mg PO TID [facility] Last Admin: 12/17/16 14:28 Dose: 100 mg Ondansetron HCl (Zofran Injection) 4 mg IVPB Q6H PRN PRN Reason: NAUSEA Phenazopyridine HCl (Pyridium -) 100 mg PO TID [facility] Last Admin: 12/17/16 14:25 Dose: 100 mg Potassium Citrate/Citric Acid (Cytra-K -) 10 meq PO BID [facility] Last Admin: 12/17/16 10:14 Dose: 10 meq Ranitidine HCl (Zantac -) 75 mg PO DAILY [facility] Last Admin: 12/17/16 10:11 Dose: 75 mg Senna (Senna -) 2 tab PO HS [facility] Last Admin: 12/16/16 21:18 Dose: 2 tab Tamsulosin HCl (Flomax -) 0.4 mg PO DAILY@0830 [facility] Last Admin: 12/17/16 08:36 Dose: 0.4 mg - Objective Vital Signs: Vital Signs Temperature 98.1 F 12/17/16 14:03 Pulse Rate 79 12/17/16 14:03 Respiratory Rate 18 12/17/16 14:03 Blood Pressure 124/80 12/17/16 14:03 O2 Sat by Pulse Oximetry (%) 97 12/17/16 10:00 Constitutional: Yes: Moderate Distress HENT: Yes: Atraumatic Cardiovascular: Yes: Regular Rate and Rhythm Respiratory: Yes: Regular, CTA Bilaterally Gastrointestinal: Yes: Normal Bowel Sounds, Soft Genitourinary: Yes: Other (left tersticular pain) Musculoskeletal: Yes: WNL Extremities: Yes: WNL Neurological: Yes: Alert, Oriented Psychiatric: Yes: Alert Labs: CBC, BMP 12/17/16 07:25 12/17/16 07:25 INR, PTT INR 1.10 (0.82-1.09) 12/14/16 11:35 Assessment/Plan Problem List - Problem (1) Urinary tract infection Code(s): N39.0 - URINARY TRACT INFECTION, SITE NOT SPECIFIED (2) Sepsis Code(s): A41.9 - SEPSIS, UNSPECIFIED ORGANISM Qualifiers: Sepsis type: sepsis due to unspecified organism Qualified Code(s): A41.9 - Sepsis, unspecified organism (3) Weakness Code(s): R53.1 - WEAKNESS (4) Abdominal pain Code(s): R10.9 - UNSPECIFIED ABDOMINAL PAIN (5) Chronic low back pain Code(s): M54.5 - LOW BACK PAIN G89.29 - OTHER CHRONIC PAIN (6) testicular torsion r/o 7 epdidymo orchitits plan continue cipro pain mgmt
[2016-12-17] MEDS: SENNOSIDES 8.6MG TABLET (FP) PO SCH (23:28)
[2016-12-18] MEDS: HYDROmorphone HCL CARPU-JECT 1 MG/1 ML DISP.SYRIN IVPB PRN ×3 (03:39→10:54)
[2016-12-18] MEDS: ACETAMINOPHEN 325 MG TABLET (FP) PO SCH ×3 (05:33→12:22)
[2016-12-18] MEDS: ELMIRON 100 MG PO SCH ×3 (06:29→21:15)
[2016-12-18] MEDS: PHENAZOPYRIDINE HCL 100 MG TABLET (FP) PO SCH ×3 (06:29→21:14)
[2016-12-18 06:42] LABS: BASOPHIL 0.6 % (0-2.0); EOSINOPHIL 2.7 % (0-4.5); MCH 27.2 pg (25.7-33.7); MCHC 32.9 g/dl (32.0-35.9); MEAN CELL VOLUME 82.7 fl (80-96); MEAN PLT VOLUME 8.5 fl (7.5-11.1); NEUTROPHILS 66.2 % (42.8-82.8); PLATELET COUNT 272 K/MM3 (134-434); RDW 14.1 % (11.9-15.9); WHITE BLOOD COUNT 6.8 K/mm3 (4.0-10.0)
[2016-12-18] MEDS: morphine SO4 SUSTAINED ACTING 15 MG TABLET.SA PO SCH ×3 (07:17→21:11)
[2016-12-18] MEDS: SODIUM CHLORIDE 1,000 ML IV SCH ×2 (07:22→16:42)
[2016-12-18 07:25] LABS: ALBUMIN 2.9 g/dl (3.4-5.0); ALK PHOS 60 U/L (45-117); ANION GAP 9 (8-16); BILIRUBIN,TOTAL 0.4 mg/dL (0.2-1.0); CALCIUM 8.3 mg/dL (8.5-10.1); CO2 28 mmol/L (21-32); COCKROFT - GAULT 123.56; CREATININE 0.8 mg/dL (0.7-1.3); GLUCOSE,RANDOM 82 mg/dL (74-106); SGOT/AST 16 U/L (15-37); SGPT/ALT 21 U/L (12-78)
[2016-12-18] MEDS ORDERED: PT OWN MED DRAWER 7, Y5N ONE ×3 (08:51→16:00)
[2016-12-18] MEDS: ENOXAPARIN NA (PORCINE) 40 MG/0.4 ML DISP.SYRIN SQ SCH (09:15)
[2016-12-18] MEDS: TAMSULOSIN HCL 0.4 MG CAP.ER.24H (FP) PO SCH (09:16)
[2016-12-18] MEDS: DOCUSATE SODIUM 100 MG CAPSULE (FP) PO SCH ×2 (09:16→21:14)
[2016-12-18] MEDS: RANITIDINE HCL 150 MG TABLET (FP) PO SCH (09:16)
[2016-12-18] MEDS: CIPROFLOXACIN 500 MG TABLET (RESTRICTED TO ID) PO SCH ×2 (09:16→21:14)
[2016-12-18] MEDS: POTASSIUM CITRATE/CITRIC ACID 2 MEQ/ML ML PO SCH ×2 (09:17→21:12)
--- NOTE | 2016-12-18 15:11 | PN ---
Physical Exam: SUBJECTIVE: Patient seen and examined. States that his pain is improving. OBJECTIVE: Repeat scrotum ultrasound tomorrow Weaning patient of IV Dilaudid in anticipation of discharge Dilaudid 2mg PO q6 ordered Explained this to patient and son (via telephone) urine culture negative Vital Signs Period Temp Pulse Resp BP Sys/Castro Pulse Ox Last 24 Hr 98 F-98.4 F 72-81 18-18 105-127/74-80 96-97 GGENERAL: The patient is awake, alert, and fully oriented, in no acute distress. HEAD: Normal with no signs of trauma. EYES: sclera anicteric, conjunctiva clear. No ptosis. ENT: Ears normal, nares patent, oropharynx clear without exudates, moist mucous membranes. NECK: Trachea midline, full range of motion, supple. LUNGS: Breath sounds equal, clear to auscultation bilaterally, no wheezes, no crackles, no accessory muscle use. HEART: Regular rate and rhythm ABDOMEN: Soft, nontender, nondistended, normoactive bowel sounds, no guarding, no rebound, no hepatosplenomegaly, no masses. EXTREMITIES: no edema. NEUROLOGICAL: Normal speech, gait not observed - uses cane at home PSYCH: Normal mood, normal affect. SKIN: c/o of left groin pain - relieved with Dilaudid Laboratory Results - last 24 hr 12/18/16 12/18/16 05:40 05:40 WBC 6.8 RBC 4.82 Hgb 13.1 Hct 39.8 MCV 82.7 MCHC 32.9 RDW 14.1 Plt Count 272 D MPV 8.5 Neutrophils % 66.2 Lymphocytes % 20.3 D Monocytes % 10.2 Eosinophils % 2.7 Basophils % 0.6 Sodium 143 Potassium 3.7 Chloride 106 Carbon Dioxide 28 Anion Gap 9 BUN 5 L Creatinine 0.8 Creat Clearance w eGFR > 60 Random Glucose 82 Calcium 8.3 L Total Bilirubin 0.4 AST 16 ALT 21 Alkaline Phosphatase 60 Total Protein 6.0 L Albumin 2.9 L Active Medications Generic Name Dose Route Start Last Admin Trade Name Freq PRN Reason Stop Dose Admin Acetaminophen 650 mg 12/15/16 13:45 12/18/16 12:22 Tylenol - PO 650 mg Q6HPO KRISTINE Administration Ciprofloxacin 500 mg 12/16/16 11:00 12/18/16 09:16 Cipro (Restricted To Id) PO 500 mg BID KRISTINE Administration Docusate Sodium 100 mg 12/14/16 22:00 12/18/16 09:16 Colace - PO 100 mg BID KRISTINE Administration Enoxaparin Sodium 40 mg 12/15/16 10:00 12/18/16 09:15 Lovenox - SQ 40 mg DAILY KRISTINE Administration Hydromorphone HCl 2 mg 12/18/16 15:09 Dilaudid - PO Q6H PRN PAIN Sodium Chloride 1,000 mls @ 75 mls/hr 12/17/16 15:56 12/18/16 07:22 Normal Saline - IV 75 mls/hr ASDIR KRISTINE Administration Morphine Sulfate 15 mg 12/14/16 22:00 12/18/16 14:49 Ms Contin - PO 15 mg TID KRISTINE Administration Elmiron 100 Mg 100 mg 12/14/16 22:00 12/18/16 14:51 Capsule - Patient PO 100 mg Own Med TID KRISTINE Administration Ondansetron HCl 4 mg 12/14/16 17:09 Zofran Injection IVPB Q6H PRN NAUSEA Phenazopyridine HCl 100 mg 12/14/16 23:30 12/18/16 14:49 Pyridium - PO 100 mg TID KRISTINE Administration Potassium Citrate/Citric Acid 10 meq 12/14/16 22:00 12/18/16 09:17 Cytra-K - PO 10 meq BID KRISTNIE Administration Ranitidine HCl 75 mg 12/15/16 10:00 12/18/16 09:16 Zantac - PO 75 mg DAILY KRISTINE Administration Senna 2 tab 12/14/16 22:00 12/17/16 23:28 Senna - PO 2 tab HS KRISTINE Administration Tamsulosin HCl 0.4 mg 12/15/16 08:30 12/18/16 09:16 Flomax - PO 0.4 mg DAILY@0830 KRISTINE Administration ASSESSMENT/PLAN: Patient is a 51 year old man with a significant past medical history of diverticulitis, BPH, prostatitis and interstitial cystitis who presented to the ED on 12/10/2016 with fever of 104F associated with chills. He had a recent cystoscopy on 12/08/2016. He was recently hospitalized at [place] for urosepsis (between 12/10 > 12/13) and returned to the ER on 12/15/2016 with left lower abdominal groin pain and fever of 104F. Imaging: Scrotal ultrasound 12/15/2016: No evidence of testicular torsion, heterogenous and course echotexture of the left testicle which is non specific w/o evidence of a discrete mass. Slightly prominent vascular flow in the left epididymis on the color doppler images when compared to the right, cannot rule out mild epididymitis. ID: Sepsis rule out in the setting of UTI - resolved Assessment/Plan: Patient admitted on 12/15 with fever of 104F with chills/rigors Lactic acid within normal limits, Urine cultures remain negative, blood cultures negative to date UA with +1 leuks, Remains afebrile, adequate urine output, WBC within normal limits, vitals stable On Cipro 500mg BID started on 12/16 as per ID Left groin with improvement of pain Sonogram 12/15 negative for torsion, epididymitis cannot be ruled out Urology consulted and following, repeat sonogram ordered for a.m. Pain managed with Dilaudid PO : BPH/Interstitial Cystitis - chronic Assessment/Plan: On Flomax 0.4mg On Pyridium, Voiding well, no post void residual on bladder scan Accurate intake and output, Bladder scan q shift Muscular/Skeletal: Chronic back pain/Lumbar pain - chronic Assessment/Plan: On Dilaudid prn, MS Contin F.E.N. Fluids: NS @ 75cc/hr Electrolytes: wnl, bmp in a.m. Nutrition: low sodium diet Prophylaxis: DVT: Lovenox 40mg daily GI: zofran, colace Visit type - Emergency Visit Emergency Visit: Yes ED Registration Date: 12/15/16 Care time: The patient presented to the Emergency Department on the above date and was hospitalized for further evaluation of their emergent condition. - New Patient This patient is new to me today: No - Critical Care Critical Care patient: No - Discharge Referral Referred to [facility] Med [facility].C.: No
[2016-12-18] MEDS: HYDROmorphone HCL 2 MG TABLET PO PRN ×2 (16:41→23:30)
[2016-12-18] MEDS: ACETAMINOPHEN 325 MG TABLET (FP) PO PRN (21:09)
[2016-12-18] MEDS: SENNOSIDES 8.6MG TABLET (FP) PO SCH (21:15)
[2016-12-19] MEDS: PHENAZOPYRIDINE HCL 100 MG TABLET (FP) PO SCH ×2 (06:16→14:37)
[2016-12-19] MEDS: HYDROmorphone HCL 2 MG TABLET PO PRN ×3 (06:16→17:46)
[2016-12-19] MEDS: ELMIRON 100 MG PO SCH ×2 (06:18→14:38)
[2016-12-19] MEDS: SODIUM CHLORIDE 1,000 ML IV SCH ×2 (06:22→17:44)
[2016-12-19 07:29] LABS: BASOPHIL 0.4 % (0-2.0); EOSINOPHIL 2.5 % (0-4.5); MCH 27.5 pg (25.7-33.7); MCHC 33.2 g/dl (32.0-35.9); MEAN CELL VOLUME 82.8 fl (80-96); MEAN PLT VOLUME 8.2 fl (7.5-11.1); NEUTROPHILS 67.2 % (42.8-82.8); PLATELET COUNT 278 K/MM3 (134-434); RDW 14.5 % (11.9-15.9); WHITE BLOOD COUNT 7.6 K/mm3 (4.0-10.0)
[2016-12-19] MEDS: morphine SO4 SUSTAINED ACTING 15 MG TABLET.SA PO SCH ×2 (07:44→14:37)
[2016-12-19 08:19] LABS: ALBUMIN 3.2 g/dl (3.4-5.0); ANION GAP 8 (8-16); BILIRUBIN,TOTAL 0.5 mg/dL (0.2-1.0); CALCIUM 8.6 mg/dL (8.5-10.1); CO2 29 mmol/L (21-32); COCKROFT - GAULT 123.56; CREATININE 0.8 mg/dL (0.7-1.3); GLUCOSE,RANDOM 82 mg/dL (74-106); SGOT/AST 19 U/L (15-37); SGPT/ALT 22 U/L (12-78); TOT PROT 6.5 g/dl (6.4-8.2)
[2016-12-19 08:20] LABS: ALK PHOS 67 U/L (45-117)
[2016-12-19] MEDS ORDERED: PT OWN MED DRAWER 7, Y5N ONE (10:19)
[2016-12-19] MEDS: ENOXAPARIN NA (PORCINE) 40 MG/0.4 ML DISP.SYRIN SQ SCH (10:23)
[2016-12-19] MEDS: ACETAMINOPHEN 325 MG TABLET (FP) PO PRN (10:24)
[2016-12-19] MEDS: RANITIDINE HCL 150 MG TABLET (FP) PO SCH (10:25)
[2016-12-19] MEDS: DOCUSATE SODIUM 100 MG CAPSULE (FP) PO SCH (10:25)
[2016-12-19] MEDS: TAMSULOSIN HCL 0.4 MG CAP.ER.24H (FP) PO SCH (10:26)
[2016-12-19] MEDS: POTASSIUM CITRATE/CITRIC ACID 2 MEQ/ML ML PO SCH (10:33)
[2016-12-19] MEDS: CIPROFLOXACIN 500 MG TABLET (RESTRICTED TO ID) PO SCH (10:34)
--- NOTE | 2016-12-19 15:13 | DS ---
Physical Exam: SUBJECTIVE: Patient seen and examined. States he feels better, wants to go home. OBJECTIVE: Scrotal ultrasound reviewed. Patient needs to follow up with a urologist, however, Dr Jimenez and Dr. Otero do not accept patient's insurance Social work informed. Patient and son refusing to see Dr. Reid whom he as seen in the past. Vital Signs Period Temp Pulse Resp BP Sys/Castro Pulse Ox Last 24 Hr 97.8 F-98.0 F 71-82 18-18 132-135/80-94 96 PHYSICAL EXAM GGENERAL: The patient is awake, alert, and fully oriented, in no acute distress. HEAD: Normal with no signs of trauma. EYES: sclera anicteric, conjunctiva clear. No ptosis. ENT: Ears normal, nares patent, oropharynx clear without exudates, moist mucous membranes. NECK: Trachea midline, full range of motion, supple. LUNGS: Breath sounds equal, clear to auscultation bilaterally, no wheezes, no crackles, no accessory muscle use. HEART: Regular rate and rhythm ABDOMEN: Soft, nontender, nondistended, normoactive bowel sounds, no guarding, no rebound, no hepatosplenomegaly, no masses. EXTREMITIES: no edema. NEUROLOGICAL: Normal speech, gait not observed - uses cane at home PSYCH: Normal mood, normal affect. SKIN: c/o of left groin pain - relieved with Dilaudid - pain improving LABS Laboratory Results - last 24 hr 12/19/16 12/19/16 06:20 06:20 WBC 7.6 RBC 5.06 Hgb 13.9 Hct 41.9 MCV 82.8 MCHC 33.2 RDW 14.5 Plt Count 278 MPV 8.2 Neutrophils % 67.2 Lymphocytes % 21.2 Monocytes % 8.7 Eosinophils % 2.5 Basophils % 0.4 Sodium 143 Potassium 4.1 Chloride 106 Carbon Dioxide 29 Anion Gap 8 BUN 5 L Creatinine 0.8 Creat Clearance w eGFR > 60 Random Glucose 82 Calcium 8.6 Total Bilirubin 0.5 D AST 19 ALT 22 Alkaline Phosphatase 67 Total Protein 6.5 Albumin 3.2 L HOSPITAL COURSE: Date of Admission:12/15/16 Date of Discharge: 12/19/16 Patient is a 51 year old man with a significant past medical history of diverticulitis, BPH, prostatitis and interstitial cystitis who presented to the ED on 12/10/2016 with fever of 104F associated with chills. He had a recent cystoscopy on 12/08/2016. He was recently hospitalized at [place] for urosepsis (between 12/10 > 12/13) and returned to the ER on 12/15/2016 with left lower abdominal groin pain and fever of 104F. Imaging: Scrotal ultrasound 12/15/2016: No evidence of testicular torsion, heterogenous and course echotexture of the left testicle which is non specific w/o evidence of a discrete mass. Slightly prominent vascular flow in the left epididymis on the color doppler images when compared to the right, cannot rule out mild epididymitis. Scrotal ultrasound 12/19/2016: ultrasound with no significant changes in slightly heterogenous left testicle, small osbaldo. hydroceles ID: Sepsis rule out in the setting of UTI - resolved Assessment/Plan: Lactic acid within normal limits, Urine cultures remain negative, blood cultures negative to date UA with +1 leuks, Remains afebrile, adequate urine output, WBC within normal limits, vitals stable, no post void residual On Cipro 500mg BID started on 12/16 as per ID to continue for 7 more days (total of 11 days) Left groin with improvement of pain Sonogram 12/15 negative for torsion, epididymitis cannot be ruled out Urology consulted and following, repeat sonogram Pain managed with Dilaudid PO : BPH/Interstitial Cystitis - chronic Assessment/Plan: On Flomax 0.4mg On Pyridium, Voiding well, no post void residual on bladder scan Accurate intake and output, Bladder scan q shift Muscular/Skeletal: Chronic back pain/Lumbar pain - chronic Assessment/Plan: On Dilaudid prn, MS Contin Disposition: d/c home with close urology follow up. please see your urologist within 1 week after discharge. Minutes to complete discharge: 45 Discharge Summary Reason For Visit: WEAKNESS Current Active Problems Chronic low back pain (Acute) DVT prophylaxis (Acute) Epididymo-orchitis (Acute) Shortness of breath (Acute) Urinary tract infection (Acute) Weakness (Acute) Condition: Stable - Instructions Diet, Activity, Other Instructions: Gjondrekaj: Please follow up with your urologist within one week of discharge. Unfortunately Dr. Otero does not accept your current insurance, therefore please check with your insurance for an in network provider if you decide not want to follow up with Dr. Reid. Continue the Cipro 500mg for 7 more days twice per day. Take Dilaudid as prescribed. Please return to the ER with any new or worsening symptoms. Please call me with any questions you may have. [facility] [employer] [phone] Referrals: Ina Elizondo [Primary Care Provider] - Salbador Jimenez MD., [Staff Physician] - Disposition: HOME - Home Medications Comprehensive Discharge Medication List: Ambulatory Orders Pentosan Polysulfate Sodium [Elmiron] 100 mg PO TID 08/27/15 Ranitidine HCl [Zantac 75] 75 mg PO DAILY 08/27/15 Tamsulosin HCl [Flomax -] 0.4 mg PO DAILY 08/27/15 Docusate Sodium [Colace -] 100 mg PO BID 04/30/16 Sennosides [Perdiem] 15 mg PO DAILY 04/30/16 Morphine *Sr* [Ms Contin -] 15 mg PO Q8H 12/09/16 Potassium Citrate [Potassium Citrate ER] 10 meq PO BID 12/09/16 Ciprofloxacin HCl [Cipro] 500 mg PO BID #22 tablet 12/13/16 Phenazopyridine HCl [Pyridium -] 100 mg PO PC #90 tablet 12/13/16 This patient is new to me today: No Emergency Visit: Yes ED Registration Date: 12/15/16 Care time: The patient presented to the Emergency Department on the above date and was hospitalized for further evaluation of their emergent condition. Critical Care patient: No - Discharge Referral Referred to [facility] No
[2016-12-19 15:14] VITALS: BP 112/50; PULSE 82; TEMP 98.1
--- NOTE | 2016-12-19 16:53 | PN ---
Progress Note, Physician History of Present Illness: patient stable still having pain in the testicular region - Current Medication List Current Medications: Active Medications Acetaminophen (Tylenol -) 650 mg PO Q6HPO PRN PRN Reason: headaches Last Admin: 12/19/16 10:24 Dose: 650 mg Ciprofloxacin (Cipro (Restricted To Id)) 500 mg PO BID [facility] Last Admin: 12/19/16 10:34 Dose: 500 mg Docusate Sodium (Colace -) 100 mg PO BID [facility] Last Admin: 12/19/16 10:25 Dose: 100 mg Enoxaparin Sodium (Lovenox -) 40 mg SQ DAILY [facility] Last Admin: 12/19/16 10:23 Dose: 40 mg Hydromorphone HCl (Dilaudid -) 2 mg PO Q6H PRN PRN Reason: PAIN Last Admin: 12/19/16 12:09 Dose: 2 mg Sodium Chloride (Normal Saline -) 1,000 mls @ 75 mls/hr IV ASDIR [facility] Last Admin: 12/19/16 06:22 Dose: 75 mls/hr Morphine Sulfate (Ms Contin -) 15 mg PO TID [facility] Last Admin: 12/19/16 14:37 Dose: 15 mg Elmiron 100 Mg Capsule - Patient Own Med 100 mg PO TID [facility] Last Admin: 12/19/16 14:38 Dose: 100 mg Ondansetron HCl (Zofran Injection) 4 mg IVPB Q6H PRN PRN Reason: NAUSEA Phenazopyridine HCl (Pyridium -) 100 mg PO TID [facility] Last Admin: 12/19/16 14:37 Dose: 100 mg Potassium Citrate/Citric Acid (Cytra-K -) 10 meq PO BID [facility] Last Admin: 12/19/16 10:33 Dose: 10 meq Ranitidine HCl (Zantac -) 75 mg PO DAILY [facility] Last Admin: 12/19/16 10:25 Dose: 75 mg Senna (Senna -) 2 tab PO HS [facility] Last Admin: 12/18/16 21:15 Dose: 2 tab Tamsulosin HCl (Flomax -) 0.4 mg PO DAILY@0830 [facility] Last Admin: 12/19/16 10:26 Dose: 0.4 mg - Objective Vital Signs: Vital Signs Temperature 98.1 F 12/19/16 15:12 Pulse Rate 82 12/19/16 15:12 Respiratory Rate 20 12/19/16 15:12 Blood Pressure 112/50 12/19/16 15:12 O2 Sat by Pulse Oximetry (%) 96 12/19/16 09:00 Constitutional: Yes: Calm, Mild Distress Cardiovascular: Yes: Regular Rate and Rhythm Respiratory: Yes: Regular, CTA Bilaterally Gastrointestinal: Yes: Normal Bowel Sounds, Soft Genitourinary: Yes: Other (testicular pain) Musculoskeletal: Yes: WNL Extremities: Yes: WNL Neurological: Yes: Alert, Oriented Psychiatric: Yes: Alert Labs: CBC, BMP 12/19/16 06:20 12/19/16 06:20 INR, PTT INR 1.10 (0.82-1.09) 12/14/16 11:35 Assessment/Plan Problem List - Problem (1) Urinary tract infection Code(s): N39.0 - URINARY TRACT INFECTION, SITE NOT SPECIFIED (2) Sepsis Code(s): A41.9 - SEPSIS, UNSPECIFIED ORGANISM Qualifiers: Sepsis type: sepsis due to unspecified organism Qualified Code(s): A41.9 - Sepsis, unspecified organism (3) Weakness Code(s): R53.1 - WEAKNESS (4) Abdominal pain Code(s): R10.9 - UNSPECIFIED ABDOMINAL PAIN (5) Chronic low back pain Code(s): M54.5 - LOW BACK PAIN G89.29 - OTHER CHRONIC PAIN 7 epdidymo orchitits plan continue cipro pain mgmt prevent testicular damage spoke wiht family in great detail
== END 2016-12-19 18:10 | disposition home or self-care (01) | DRG 720 ==
LOC: JER 10:11 → UNDOADMOB 15:38 → JERBED 15:38 → J5S 21:19 → OBSVTOIN 12-15 16:30 → INTOOBSV 12-15 16:30 → J5S 12-15 16:30
PROVIDERS: ADMIT Internal Medicine; ATTEND Nurse Practitioner Family
DX: A41.9 Sepsis, unspecified organism (principal); N40.0 Benign prostatic hyperplasia without lower urinary tract symptoms; N41.9 Inflammatory disease of prostate, unspecified; J90 Pleural effusion, not elsewhere classified; N20.0 Calculus of kidney; K57.92 Diverticulitis of intestine, part unspecified, without perforation or abscess without bleeding; M54.5 Low back pain; N39.0 Urinary tract infection, site not specified; N43.2 Other hydrocele; F41.9 Anxiety disorder, unspecified; N45.2 Orchitis; Z87.891 Personal history of nicotine dependence
CPT/HCPCS: 36415; 70450-TC; 71010-TC; 74176-TC; 76856-TC; 76870-TC; 80053; 81003; 81015; 82550; 82803; 83605; 83735; 84484; 85025; 85610; 85730; 86850; 86900; 86901; 87040; 87086; 93005; 93010; 99285-25; Q9967